=== PATIENT | female | born 1965 | race Two or more races ===

== ENCOUNTER 2020-01-13 10:54 | Outpatient (REF) | payer OTHER, SELFPAY ==
[2020-01-13 13:31] LABS: MANUAL DIFF FLAG NO
[2020-01-13 13:35] LABS: Basophils Percent Auto 0.2 % (0-2); Eosinophils Absolute Auto 0.1 X10*3/uL (0.0-0.4); Eosinophils Percent Auto 1.4 % (0-4); Hemoglobin 13.3 g/dl (12.0-16.0); Imm Gran Abs Auto 0.01 X10*3/uL (0.00-0.03); Imm Gran Pct Auto 0.2 % (0.0-0.4); Lymphocytes Absolute Auto 1.4 X10*3/uL (1.2-4.9); Lymphocytes Percent Auto 32.6 % (20-40); Mean Corpuscular HGB Conc 31.7 g/dl (31.0-35.0); Mean Corpuscular Hemoglobin 29.5 pg (27.0-33.0); Mean Corpuscular Volume 93.1 fL (80-98); Mean Platelet Volume 10.4 fL (9.4-12.3); Monocytes Absolute Auto 0.3 X10*3/uL (0.1-1.2); Monocytes Percent Auto 7.3 % (2-11); Neutrophils Absolute Auto 2.5 X10*3/uL (2.0-8.3); Neutrophils Percent Auto 58.3 % (45-73); Platelet Count 268 X10*3/uL (160-400); Red Blood Count 4.51 X10*6/uL (4.20-5.50); Red Cell Distribution Width 13.2 % (11.0-16.0); White Blood Count 4.3 X10*3/uL (4.8-10.8)
[2020-01-13 13:50] LABS: Alanine Aminotransferase 25 U/L (0-31); Alkaline Phosphatase 67 U/L (39-117); Anion Gap 12 (12-20); Aspartate Amino Transferase 20 U/L (5-31); Bilirubin Total 0.7 mg/dL (0.0-1.0); Blood Urea Nitrogen 16 mg/dL (9-16); C Reactive Protein 0.13 mg/dL (< or = 0.50); Calcium 9.8 mg/dL (8.4-10.2); Carbon Dioxide 29 mmol/L (22-29); Chloride 105 mmol/L (96-108); Cholesterol 169 mg/dL; Estimated Average Glucose 88 mg/dL; Estimated Glomerular Filt Rate > 60; Glucose Random 77 mg/dL (60-115); HDL Cholesterol 68 mg/dL; Hemoglobin A1c % 4.7 %; Iron 147 mcg/dL (30-160); LDL Cholesterol Calculated 89 mg/dl; Percent Iron Saturation 45 % (15-50); Potassium 4.3 mmol/l (3.3-5.1); Sodium 142 mmol/L (135-145); Total Iron Binding Capacity 327 mcg/dL (228-428); Total Protein 6.9 g/dL (6.5-8.0); Triglycerides 62 mg/dL; Unsaturated Iron Binding 180 ug/dL
[2020-01-13 14:20] LABS: TSH reflex Free T4 0.52 mIU/mL (0.32-4.0); Vitamin D 25-OH Total 49.6 ng/mL (>30)
[2020-01-13 17:30] LABS: Ferritin 125 ng/mL (10-250)
[2020-01-14 17:52] LABS: Insulin Level Total 2.9 uIU/mL
[2020-01-14 20:55] LABS: Folate 16.8 ng/mL (> or = 4.0); Vitamin B12 369 pg/mL (200-900)
[2020-01-17 16:57] LABS: Zinc 67 mcg/dL (60-130)
[2020-01-18 07:02] LABS: Calcium (PTHI) 10.3 mg/dL (8.6-10.4); PTHI 55 pg/mL (14-64)
[2020-01-19 17:11] LABS: Vitamin A 53 mcg/dL (38-98)
[2020-01-20 10:46] LABS: Vitamin B1 10 nmol/L (8-30)
== END 2020-01-13 10:55 | disposition home or self-care (01) ==
LOC: HO.LAB 10:54
PROVIDERS: PCP Internal Medicine; Visit Provider Dietitian, Registered
DX: Z98.84 Bariatric surgery status (principal)
CPT/HCPCS: 36415; 80053; 80061; 82306; 82607; 82728; 82746; 83036; 83525; 83540; 83970; 84425; 84443; 84590; 84630; 85025; 86140

== ENCOUNTER → 2020-03-13 13:52 | Outpatient (BNVA) | payer OTHER, SELFPAY | PROVIDERS: PCP Internal Medicine; Referring Provider Internal Medicine; Visit Provider Surgery | DX: E66.3 Overweight (principal); Z90.3 Acquired absence of stomach [part of]; Z68.26 Body mass index [BMI] 26.0-26.9, adult; K91.2 Postsurgical malabsorption, not elsewhere classified | CPT/HCPCS: 99212 ==

== ENCOUNTER → 2020-07-10 13:26 | Outpatient (BNVA) | payer OTHER, SELFPAY | PROVIDERS: PCP Internal Medicine; Visit Provider Physician Assistant | DX: E66.3 Overweight (principal); K91.2 Postsurgical malabsorption, not elsewhere classified; Z90.3 Acquired absence of stomach [part of]; Z68.36 Body mass index [BMI] 36.0-36.9, adult | CPT/HCPCS: 99212 ==

== ENCOUNTER → 2020-08-09 08:18 | Outpatient (BNVA) | payer OTHER, SELFPAY | PROVIDERS: PCP Internal Medicine; Visit Provider Dietitian, Registered | DX: E66.9 Obesity, unspecified (principal); Z68.26 Body mass index [BMI] 26.0-26.9, adult | CPT/HCPCS: 97803 ==

== ENCOUNTER → 2020-10-17 08:10 | Outpatient (BNVA) | payer OTHER, SELFPAY | PROVIDERS: PCP Internal Medicine; Visit Provider Physician Assistant ==

== ENCOUNTER → 2020-10-19 11:46 | Outpatient (BNVA) | payer OTHER, SELFPAY | PROVIDERS: PCP Internal Medicine; Visit Provider Physician Assistant ==

== ENCOUNTER → 2020-11-14 13:21 | Outpatient (BNVA) | payer OTHER, SELFPAY | PROVIDERS: PCP Internal Medicine; Visit Provider Physician Assistant | DX: M79.3 Panniculitis, unspecified (principal); Z90.3 Acquired absence of stomach [part of]; Z79.899 Other long term (current) drug therapy | CPT/HCPCS: 99212 ==

== ENCOUNTER → 2020-12-08 13:45 | Outpatient (BNVA) | payer OTHER, SELFPAY | PROVIDERS: PCP Internal Medicine; Visit Provider Physician Assistant | DX: L29.8 Other pruritus (principal); M79.3 Panniculitis, unspecified; E66.3 Overweight; Z68.27 Body mass index [BMI] 27.0-27.9, adult; Z90.3 Acquired absence of stomach [part of] | CPT/HCPCS: 99212 ==

== ENCOUNTER 2020-12-13 10:55 | Outpatient (REF) | payer OTHER, SELFPAY ==
[2020-12-13 11:51] LABS: MANUAL DIFF FLAG NO
[2020-12-13 11:53] LABS: Basophils Percent Auto 0.3 % (0-2); Eosinophils Percent Auto 1.1 % (0-4); Hematocrit 39.6 % (37-47); Imm Gran Abs Auto 0.01 X10*3/uL (0.00-0.03); Imm Gran Pct Auto 0.3 % (0.0-0.4); Mean Corpuscular HGB Conc 32.8 g/dl (31.0-35.0); Mean Corpuscular Hemoglobin 29.7 pg (27.0-33.0); Mean Corpuscular Volume 90.4 fL (80-98); Mean Platelet Volume 10.4 fL (9.4-12.3); Monocytes Absolute Auto 0.4 X10*3/uL (0.1-1.2); Monocytes Percent Auto 10.2 % (2-11); Neutrophils Absolute Auto 2.2 X10*3/uL (2.0-8.3); Neutrophils Percent Auto 60.1 % (45-73); Platelet Count 278 X10*3/uL (160-400); Red Blood Count 4.38 X10*6/uL (4.20-5.50); Red Cell Distribution Width 12.7 % (11.0-16.0); White Blood Count 3.7 X10*3/uL (4.8-10.8)
[2020-12-13 12:00] LABS: Estimated Average Glucose 88 mg/dL; Hemoglobin A1c % 4.7 %
[2020-12-13 12:23] LABS: Alanine Aminotransferase 238 U/L (0-31); Albumin Level 3.9 g/dL (3.5-5.0); Alkaline Phosphatase 90 U/L (39-117); Anion Gap 10 (12-20); Aspartate Amino Transferase 320 U/L (5-31); Bilirubin Total 0.8 mg/dL (0.0-1.0); Blood Urea Nitrogen 13 mg/dL (9-16); C Reactive Protein 0.11 mg/dL (< or = 0.50); Carbon Dioxide 30 mmol/L (22-29); Chloride 106 mmol/L (96-108); Cholesterol 180 mg/dL; Estimated Glomerular Filt Rate > 60; Glucose Random 83 mg/dL (60-115); HDL Cholesterol 69 mg/dL; Iron 134 mcg/dL (30-160); LDL Cholesterol Calculated 90 mg/dl; Percent Iron Saturation 44 % (15-50); Potassium 4.8 mmol/L (3.3-5.1); Sodium 141 mmol/L (135-145); Total Iron Binding Capacity 308 mcg/dL (228-428); Total Protein 6.7 g/dL (6.5-8.0); Triglycerides 107 mg/dL; Unsaturated Iron Binding 174 ug/dL
[2020-12-13 12:33] LABS: Ferritin 124 ng/mL (10-250); TSH reflex Free T4 1.76 uIU/mL (0.32-4.0); Vitamin D 25-OH Total 36.8 ng/mL (>30)
[2020-12-13 12:51] LABS: Folate 17.1 ng/mL (> or = 4.0); Vitamin B12 1049 pg/mL (200-900)
[2020-12-15 02:52] LABS: Insulin Level Total 5.6 uIU/mL
[2020-12-17 00:51] LABS: Zinc 53 mcg/dL (60-130)
[2020-12-17 06:31] LABS: Calcium (PTHI) 9.8 mg/dL (8.6-10.4); PTHI 59 pg/mL (14-64)
[2020-12-17 11:22] LABS: Vitamin B1 17 nmol/L (8-30)
[2020-12-19 20:22] LABS: Vitamin A 45 mcg/dL (38-98)
== END 2020-12-13 10:56 | disposition home or self-care (01) ==
LOC: HO.LAB 10:55
PROVIDERS: Physician Assistant; Visit Provider Physical Medicine & Rehabilitation
DX: E66.3 Overweight (principal); Z90.3 Acquired absence of stomach [part of]
CPT/HCPCS: 36415; 80053; 80061; 82306; 82607; 82728; 82746; 83036; 83525; 83540; 83970; 84425; 84443; 84590; 84630; 85025; 86140

== ENCOUNTER → 2021-02-02 14:05 | Outpatient (BNVA) | payer OTHER, SELFPAY | PROVIDERS: PCP Internal Medicine; Visit Provider Physician Assistant Surgical | DX: E66.3 Overweight (principal); L98.7 Excessive and redundant skin and subcutaneous tissue; R74.8 Abnormal levels of other serum enzymes; Z68.27 Body mass index [BMI] 27.0-27.9, adult | CPT/HCPCS: 99212 ==

== ENCOUNTER 2021-02-03 09:15 | Outpatient (REF) | payer OTHER, SELFPAY ==
[2021-02-03 10:03] LABS: Hematocrit 39.9 % (37.0-47.0); Hemoglobin 12.6 g/dl (12.0-16.0); Mean Corpuscular HGB Conc 31.6 g/dl (31.0-35.0); Mean Corpuscular Hemoglobin 28.8 pg (27.0-33.0); Mean Corpuscular Volume 91.3 fL (80.0-98.0); Mean Platelet Volume 9.8 fL (9.4-12.3); Platelet Count 280 X10*3/uL (160-400); Red Blood Count 4.37 X10*6/uL (4.20-5.50); White Blood Count 3.2 X10*3/uL (4.8-10.8)
[2021-02-03 10:18] LABS: Alanine Aminotransferase 14 U/L (0-31); Albumin Level 3.9 g/dL (3.5-5.0); Alkaline Phosphatase 77 U/L (39-117); Anion Gap 11 (12-20); Aspartate Amino Transferase 18 U/L (5-31); Bilirubin Direct 0.2 mg/dL (0.0-0.5); Bilirubin Total 0.6 mg/dL (0.0-1.0); Blood Urea Nitrogen 9 mg/dL (9-16); Calcium 9.7 mg/dL (8.4-10.2); Carbon Dioxide 30 mmol/L (22-29); Chloride 107 mmol/L (96-108); Estimated Glomerular Filt Rate > 60; Glucose Random 68 mg/dL (60-115); Potassium 4.9 mmol/L (3.3-5.1); Sodium 143 mmol/L (135-145); Total Protein 6.7 g/dL (6.5-8.0)
[2021-02-03 10:40] LABS: Vitamin D 25-OH Total 39.8 ng/mL (>30)
[2021-02-03 11:16] LABS: Atypical Lymph Absolute Manual 0.1 x10*3/uL; Atypical Lymphs Percent Manual 3 % (0-6); Band Neutrophils Percent 1 % (3-5); Eosinophils Absolute Manual 0.1 X10*3/uL (0.0-0.4); Eosinophils Percent Manual 2 % (0-4); Lymphocytes Absolute Manual 1.4 X10*3/uL (1.2-4.9); Lymphocytes Percent Manual 43 % (20-40); Monocytes Absolute Manual 0.4 X10*3/uL (0.1-1.2); Monocytes Percent Manual 11 % (2-11); Neutrophils Absolute Manual 1.3 X10*3/uL (2.0-8.3); Neutrophils Percent Manual 40 % (45-73)
[2021-02-03 11:18] LABS: Platelet Estimate NORMAL (NORMAL); Platelet Morphology Comment NORMAL; RBC Morphology NORMAL
[2021-02-07 04:36] LABS: Zinc 66 mcg/dL (60-130)
[2021-02-07 18:42] LABS: Vitamin A 35 mcg/dL (38-98)
== END 2021-02-03 09:16 | disposition home or self-care (01) ==
LOC: HO.LAB 09:15
PROVIDERS: Visit Provider Physician Assistant Surgical
DX: E66.3 Overweight (principal)
CPT/HCPCS: 36415; 80053; 82248; 82306; 84590; 84630; 85007; 85025; 85027

== ENCOUNTER → 2021-02-22 11:21 | Outpatient (BNVA) | payer OTHER, SELFPAY | PROVIDERS: PCP Internal Medicine; Visit Provider Physician Assistant Surgical | DX: E66.3 Overweight (principal); M79.3 Panniculitis, unspecified; E03.9 Hypothyroidism, unspecified; F41.8 Other specified anxiety disorders; Z68.27 Body mass index [BMI] 27.0-27.9, adult; Z87.891 Personal history of nicotine dependence; Z90.3 Acquired absence of stomach [part of]; Z79.899 Other long term (current) drug therapy | CPT/HCPCS: 99212 ==

== ENCOUNTER → 2021-03-23 08:07 | Outpatient (BNVA) | payer OTHER, SELFPAY | PROVIDERS: PCP Internal Medicine; Visit Provider Physician Assistant Surgical ==

== ENCOUNTER → 2021-09-12 14:16 | Outpatient (BNVA) | payer OTHER, SELFPAY | PROVIDERS: PCP Internal Medicine; Visit Provider Physician Assistant Surgical | DX: E66.3 Overweight (principal); Z68.28 Body mass index [BMI] 28.0-28.9, adult; Z98.84 Bariatric surgery status | CPT/HCPCS: 99212 ==

== ENCOUNTER → 2022-06-11 09:18 | Outpatient (BNVA) | payer OTHER, SELFPAY | PROVIDERS: PCP Internal Medicine; Visit Provider Physician Assistant | DX: Z13.89 Encounter for screening for other disorder (principal) ==

== ENCOUNTER → 2022-06-27 14:00 | Outpatient (BNVA) | payer OTHER, SELFPAY | PROVIDERS: PCP Internal Medicine; Visit Provider Physician Assistant Surgical | DX: E66.3 Overweight (principal); L98.7 Excessive and redundant skin and subcutaneous tissue; Z68.27 Body mass index [BMI] 27.0-27.9, adult; Z90.49 Acquired absence of other specified parts of digestive tract; Z90.3 Acquired absence of stomach [part of] | CPT/HCPCS: 99212 ==

== ENCOUNTER 2022-07-22 08:14 | Outpatient (REF) | payer OTHER, SELFPAY ==
[2022-07-22 08:26] LABS: MANUAL DIFF FLAG NO
[2022-07-22 08:51] LABS: Basophils Percent Auto 0.3 % (0-2); Eosinophils Absolute Auto 0.1 X10*3/uL (0.0-0.4); Eosinophils Percent Auto 2.4 % (0-4); Hemoglobin 11.5 g/dl (12.0-16.0); Imm Gran Abs Auto 0.01 X10*3/uL (0.00-0.03); Imm Gran Pct Auto 0.3 % (0.0-0.4); Lymphocytes Absolute Auto 1.2 X10*3/uL (1.2-4.9); Lymphocytes Percent Auto 35.6 % (20-40); Mean Corpuscular HGB Conc 31.9 g/dl (31.0-35.0); Mean Corpuscular Hemoglobin 28.5 pg (27.0-33.0); Mean Corpuscular Volume 89.1 fL (80.0-98.0); Mean Platelet Volume 9.8 fL (9.4-12.3); Monocytes Absolute Auto 0.4 X10*3/uL (0.1-1.2); Monocytes Percent Auto 12.2 % (2-11); Neutrophils Absolute Auto 1.7 x10*3/uL (2.0-8.3); Neutrophils Percent Auto 49.2 % (45-73); Platelet Count 263 X10*3/uL (160-400); Red Blood Count 4.04 X10*6/uL (4.20-5.50); Red Cell Distribution Width 12.7 % (11.0-16.0); White Blood Count 3.4 X10*3/uL (4.8-10.8)
[2022-07-22 09:23] LABS: Estimated Average Glucose 97 mg/dL
[2022-07-22 09:35] LABS: Alanine Aminotransferase 12 U/L (0-31); Albumin Level 3.6 g/dL (3.5-5.0); Alkaline Phosphatase 70 U/L (39-117); Anion Gap 10 (12-20); Aspartate Amino Transferase 15 U/L (5-31); Bilirubin Total 0.6 mg/dL (0.0-1.0); Blood Urea Nitrogen 11 mg/dL (9-16); C Reactive Protein < 0.10 mg/dL (< or = 0.50); Calcium 9.3 mg/dL (8.4-10.2); Carbon Dioxide 28 mmol/L (22-29); Chloride 108 mmol/L (96-108); Cholesterol 152 mg/dL; Estimated Glomerular Filt Rate > 60; Glucose Random 88 mg/dL (60-115); HDL Cholesterol 54 mg/dL; Iron 104 mcg/dL (30-160); LDL Cholesterol Calculated 86 mg/dl; Percent Iron Saturation 39 % (15-50); Sodium 141 mmol/L (135-145); Total Iron Binding Capacity 266 mcg/dL (228-428); Total Protein 6.2 g/dL (6.5-8.0); Triglycerides 61 mg/dL; Unsaturated Iron Binding 162 ug/dL
[2022-07-22 10:13] LABS: Ferritin 91 ng/mL (10-250); Folate 10.5 ng/mL (> or = 4.0); TSH reflex Free T4 0.15 uIU/mL (0.32-4.0); Vitamin B12 454 pg/mL (200-900); Vitamin D 25-OH Total 35.7 ng/mL (>30)
[2022-07-22 10:33] LABS: Insulin 5 uU/mL (2-29)
[2022-07-22 10:53] LABS: Free T4 (Free Thyroxine) 1.28 ng/dL (0.71-1.85)
[2022-07-23 15:48] LABS: Calcium (PTHI) 9.7 mg/dL (8.6-10.4); PTHI 59 pg/mL (16-77)
[2022-07-26 22:54] LABS: Zinc 63 mcg/dL (60-130)
[2022-07-27 10:33] LABS: Vitamin B1 11 nmol/L (8-30)
[2022-07-27 22:39] LABS: Vitamin A 36 mcg/dL (38-98)
== END 2022-07-22 08:15 | disposition home or self-care (01) ==
LOC: HO.LAB 08:14
PROVIDERS: Visit Provider Physician Assistant Surgical
DX: E66.3 Overweight (principal); L98.7 Excessive and redundant skin and subcutaneous tissue; Z90.3 Acquired absence of stomach [part of]
CPT/HCPCS: 36415; 80053; 80061; 82306; 82607; 82728; 82746; 83036; 83525; 83540; 83970; 84425; 84439; 84443; 84590; 84630; 85025; 86140

== ENCOUNTER 2023-11-19 10:58 | Outpatient (AMB) | payer OTHER, SELFPAY ==
--- NOTE | 2023-11-19 11:27 | MHC.OFFVISWM ---
VS Expanded 11/19/23 11:40 BP 114/72 Blood Pressure Location Rt brachial Blood Pressure Position Sitting Pulse 57 Pulse Source Pulse Oximeter Temp 96.9 F Temperature Source Temporal Artery Scan Pulse Oximetry 100 Oxygen Delivery Method Room Air Height 5 ft 4 in Weight 169 lb BMI 29.0 Body Fat % 41.4 Body Fat Mass 69.8 Fat Free Mass 99.0 Visceral Fat Rating 10.0 Body Water % 41.5 Body Water Mass 70.2 Muscle Mass/Score 94.0 Basal Metabolic Rate/Score 1,374 Intake Visit Reasons: (OV) PO LSG 02/24/19 Allergies No Known Allergies [No Known Allergies*] Allergy (Verified 11/19/23 11:35) Medication List - Last Reconciled 11/19/23 by GANGA Lopez fluticasone propionate 50 mcg/actuation (Allergy Relief (fluticasone)) 1 spray intranasal DAILY levothyroxine 125 mcg PO DAILY omeprazole 40 mg PO DAILY vitamin A palmitate 10,000 units PO DAILY HPI Comments Details: This?is a?58?yo female who is s/p LSG 02/24/2019. Weight at last visit on 06/27/2022 was 161.2 pounds with a BMI of 27.6, weight today is 169 pounds, representing a 7.8 pound weight gain with a BMI today of 29.? No complaints of emesis, abdominal pain or reflux, or constipation. Occasional nausea with certain foods- meats. Was prescribed Wegovy but has not started taking it. Present meal plan includes: pt thinks she is low is protein coffee in AM, 2 eggs with veg lunch- sandwich dinner- veg, small portion of rice, beans, small portion of meat sometimes Exercise routine includes: 30-40min elliptical- has arthritis in knees I was lacking in that - had a procedure for varicose veins PFSH Medical History Anemia Anxiety Asthma Depression Hypothyroidism Overweight (BMI 25.0-29.9) Panniculitis Plantar fasciitis Surgical History Hx of cholecystectomy S/P rotator cuff surgery History of repair of hiatal hernia Hx of hernia repair History of sleeve gastrectomy Hx of colonoscopy History of esophagogastroduodenoscopy (EGD) Hx of total knee replacement Hx of tubal ligation Hx of tonsillectomy Family History Father No problems noted. Mother Hypertension Blood clot in vein Family history of thyroid problem Diabetes mellitus Sleep apnea Son No problems noted. Son No problems noted. Son No problems noted. Daughter No problems noted. Daughter No problems noted. Daughter No problems noted. Brother No problems noted. Brother No problems noted. Sister No problems noted. Social History Alcohol intake: current Alcohol intake frequency: a few times a month Patient Tobacco Use Status: Former Tobacco user Assessment & Plan Assessment & Plan (1) Overweight (BMI 25.0-29.9): Code(s): E66.3 - Overweight Category: Medical (2) History of sleeve gastrectomy: Comment: 02/24/2019 Code(s): Z90.3 - Acquired absence of stomach [part of] Category: Medical Plan Adjust meal plan to ensure adequate protein, 2 eggs for breakfast, yogurt or bar for lunch, dinner meal with 4 forks protein, and Celebrate protein water each day. Pt will work on increasing exercise. Her nausea with certain meats (pork, beef) likely related to texture, not concerned for anatomical abnormality as she tolerates liquids, soft proteins without difficulty. Labs ordered. RTC 3-4 months. I spent a total of 30 minutes reviewing/updating records, examining the patient and counseling the patient on weight management as detailed above. Orders: Orders Insulin Today Z90.3 - Acquired absence of stomach [part of] Hemoglobin A1c Today Z90.3 - Acquired absence of stomach [part of] Lipid Panel Today Z90.3 - Acquired absence of stomach [part of] Comprehensive Met. Panel Today Z90.3 - Acquired absence of stomach [part of] Vitamin B1 Today Z90.3 - Acquired absence of stomach [part of] Vitamin A Today Z90.3 - Acquired absence of stomach [part of] TSH reflex Free T4 Today Z90.3 - Acquired absence of stomach [part of] Ferritin Today Z90.3 - Acquired absence of stomach [part of] Complete Blood Count Auto Diff Today Z90.3 - Acquired absence of stomach [part of] IRON PROFILE Today Z90.3 - Acquired absence of stomach [part of] Vitamin B12 and Folate Today . - Acquired absence of stomach [part of] Zinc Today . - Acquired absence of stomach [part of] C Reactive Protein Today . - Acquired absence of stomach [part of] Vitamin D 25-OH Total Today . - Acquired absence of stomach [part of]
[2023-11-19 11:40] VITALS: BP 114/72; PULSE 57; TEMP 36.1; O2SAT 100; BMI 29.0
== END 2023-11-19 12:03 | disposition home or self-care (01) ==
PROVIDERS: PCP Internal Medicine; Visit Provider Physician Assistant Surgical
DX: E66.3 Overweight (principal); Z68.29 Body mass index [BMI] 29.0-29.9, adult; Z90.3 Acquired absence of stomach [part of]; Z98.84 Bariatric surgery status
CPT/HCPCS: 99214

== ENCOUNTER → 2023-11-19 10:58 | Outpatient (BNVA) | payer OTHER, SELFPAY | PROVIDERS: PCP Internal Medicine; Visit Provider Physician Assistant Surgical | DX: E66.3 Overweight (principal); Z71.3 Dietary counseling and surveillance; Z90.3 Acquired absence of stomach [part of]; Z98.84 Bariatric surgery status; Z68.29 Body mass index [BMI] 29.0-29.9, adult | CPT/HCPCS: 99212 ==

== ENCOUNTER 2023-12-25 08:43 | Outpatient (REF) | payer OTHER, SELFPAY ==
[2023-12-25 09:00] LABS: MANUAL DIFF FLAG NO
[2023-12-25 09:22] LABS: Basophils Percent Auto 0.3 % (0-2); Eosinophils Absolute Auto 0.1 X10*3/uL (0.0-0.4); Eosinophils Percent Auto 1.7 % (0-4); Hemoglobin 14.1 g/dl (12.0-16.0); Imm Gran Abs Auto 0.01 X10*3/uL (0.00-0.03); Imm Gran Pct Auto 0.3 % (0.0-0.4); Lymphocytes Absolute Auto 1.2 X10*3/uL (1.2-4.9); Lymphocytes Percent Auto 35.6 % (20-40); Mean Corpuscular HGB Conc 32.8 g/dl (31.0-35.0); Mean Corpuscular Hemoglobin 29.1 pg (27.0-33.0); Mean Corpuscular Volume 88.7 fL (80.0-98.0); Mean Platelet Volume 9.6 fL (9.4-12.3); Monocytes Absolute Auto 0.4 X10*3/uL (0.1-1.2); Monocytes Percent Auto 10.2 % (2-11); Neutrophils Absolute Auto 1.8 x10*3/uL (2.0-8.3); Neutrophils Percent Auto 51.9 % (45-73); Platelet Count 279 X10*3/uL (160-400); Red Blood Count 4.85 X10*6/uL (4.20-5.50); Red Cell Distribution Width 12.6 % (11.0-16.0); White Blood Count 3.4 X10*3/uL (4.8-10.8)
[2023-12-25 10:11] LABS: Estimated Average Glucose 91 mg/dL; Hemoglobin A1c % 4.8 % (<6.0)
[2023-12-25 10:23] LABS: Alanine Aminotransferase 13 U/L (0-31); Albumin Level 4.1 g/dL (3.5-5.0); Alkaline Phosphatase 93 U/L (39-117); Anion Gap 9 (12-20); Aspartate Amino Transferase 19 U/L (5-31); Bilirubin Total 0.6 mg/dL (0.0-1.0); Blood Urea Nitrogen 12 mg/dL (9-16); C Reactive Protein 0.21 mg/dL (< or = 0.50); Calcium 9.7 mg/dL (8.4-10.2); Carbon Dioxide 31 mmol/L (22-29); Chloride 106 mmol/L (96-108); Cholesterol 168 mg/dL (<200); Estimated Glomerular Filt Rate > 60; Glucose Random 76 mg/dL (60-115); HDL Cholesterol 62 mg/dL (>40); Iron 87 mcg/dL (30-160); LDL Cholesterol Calculated 95 mg/dL (<100); Percent Iron Saturation 31 % (15-50); Potassium 4.9 mmol/L (3.3-5.1); Sodium 141 mmol/L (135-145); Total Iron Binding Capacity 278 mcg/dL (228-428); Total Protein 7.8 g/dL (6.5-8.0); Triglycerides 57 mg/dL (<150); Unsaturated Iron Binding 191 ug/dL
[2023-12-25 10:43] LABS: Folate 11.6 ng/mL (> or = 4.0); Vitamin B12 611 pg/mL (200-900)
[2023-12-25 10:44] LABS: Ferritin 125 ng/mL (10-250); Insulin 5 uU/mL (2-29); TSH reflex Free T4 1.11 uIU/mL (0.32-4.0); Vitamin D 25-OH Total 34.6 ng/mL (>30)
[2023-12-30 00:28] LABS: Zinc 68 mcg/dL (60-130)
[2023-12-30 18:18] LABS: Vitamin A 35 mcg/dL (38-98)
[2024-01-02 06:18] LABS: Vitamin B1 13 nmol/L (8-30)
== END 2023-12-25 08:44 | disposition home or self-care (01) ==
LOC: HO.LAB 08:43
PROVIDERS: PCP Internal Medicine; Visit Provider Physician Assistant Surgical
DX: Z90.3 Acquired absence of stomach [part of] (principal)
CPT/HCPCS: 36415; 80053; 80061; 82306; 82607; 82728; 82746; 83036; 83525; 83540; 84425; 84443; 84590; 84630; 85025; 86140

== ENCOUNTER 2024-02-16 11:05 | Outpatient (AMB) | payer OTHER, SELFPAY ==
--- NOTE | 2024-02-16 11:18 | A.OFFVIS_ITS ---
VS Expanded 02/16/24 11:41 BP 103/55 L Blood Pressure Location Rt brachial Blood Pressure Position Sitting Pulse 58 Pulse Source Pulse Oximeter Temp 96.5 F L Temperature Source Temporal Artery Scan Pulse Oximetry 100 Oxygen Delivery Method Room Air Height 5 ft 4 in Weight 154 lb BMI 26.4 Body Fat % 38.1 Body Fat Mass 58.6 Fat Free Mass 95.2 Visceral Fat Rating 8.0 Body Water % 43.8 Body Water Mass 67.4 Muscle Mass/Score 90.4 Basal Metabolic Rate/Score 1,311 Intake Visit Reasons: (OV) PO LSG 02/24/19 Allergies No Known Allergies [No Known Allergies*] Allergy (Verified 02/16/24 11:21) Medication List - Last Reconciled 02/16/24 by GANGA Lopez fluticasone propionate 50 mcg/actuation (Allergy Relief (fluticasone)) 1 spray intranasal DAILY levothyroxine 125 mcg PO DAILY omeprazole 40 mg PO DAILY semaglutide (weight loss) (Wegovy) mg subcut vitamin A palmitate 10,000 units PO DAILY HPI Comments Details: This?is a?58?yo female who is s/p LSG 02/24/2019. Presents for 5 year post op visit. Weight at last visit on 11/19/2023 was 169 pounds with a BMI of 29, weight today is 154 pounds, representing a 15 pound weight loss with a BMI today of 26.4.? No complaints of nausea, emesis, abdominal pain or reflux, or constipation. Pt has started Wegovy. Had some nausea initially when starting, better now. Still having some trouble getting enough protein in due to lack of hunger. However, has tried to at least one protein shake per day with 30g. Takes omeprazole PRN when triggered. Present meal plan includes: 2 eggs for breakfast, yogurt or bar for lunch, dinner meal with 4 forks protein, and Celebrate protein water taking MVI, ran out of vitamin A Exercise routine includes: active around house, with grandkids/cleaning Pt reports issues of excess skin of the abdomen. Reports frequent painful itchy rashes, particularly within the belly button. Difficult to keep this area clean, has to clean frequently. Notices an unpleasant odor due to moisture collecting in the skin folds. Has tried topical powders/creams which have not helped. Pt has difficulty finding clothing that fits well and is comfortable due to the excess skin. Excess skin interferes with activites of daily living, such as walking/bending/squatting which are made more difficult by the weight of the excess skin. The excess skin also causes back/flank pain due to the heaviness of the excess skin pulling downwards. [facility] Medical History Anemia Anxiety Asthma Depression Hypothyroidism Overweight (BMI 25.0-29.9) Panniculitis Plantar fasciitis Surgical History Hx of cholecystectomy S/P rotator cuff surgery History of repair of hiatal hernia Hx of hernia repair History of sleeve gastrectomy Hx of colonoscopy History of esophagogastroduodenoscopy (EGD) Hx of total knee replacement Hx of tubal ligation Hx of tonsillectomy Family History Father No problems noted. Mother Hypertension Blood clot in vein Family history of thyroid problem Diabetes mellitus Sleep apnea Son No problems noted. Son No problems noted. Son No problems noted. Daughter No problems noted. Daughter No problems noted. Daughter No problems noted. Brother No problems noted. Brother No problems noted. Sister No problems noted. Social History (Updated 02/16/24 @ 11:22 by Bella German CMA) Alcohol intake: current Alcohol intake frequency: holidays/special occasions only Patient Tobacco Use Status: Former Tobacco user Physical Exam Const General: cooperative, comfortable and no acute distress Orientation/consciousness: patient oriented x3 GI Other: soft, nontender, nondistended, incisions well healed, no hernia, no masses Grade III pannus Neuro General: patient oriented x3 Assessment & Plan Assessment & Plan (1) Excess skin: Code(s): L98.7 - Excessive and redundant skin and subcutaneous tissue Category: Medical (2) Overweight (BMI 25.0-29.9): Code(s): E66.3 - Overweight Category: Medical (3) History of sleeve gastrectomy: Comment: 02/24/2019 Code(s): Z90.3 - Acquired absence of stomach [part of] Category: Surgical Plan Goal of 60g protein per day, encouraged pt to have 2 small meals in addition to 30g shake, such as yogurt, bar, or meat. Vit A refilled. Pt is experiencing problems of excess skin of abdomen, resulting in frequent painful rashes. In addition, she is experiencing limitation of physical function including pain/discomfort when performing activities of daily living, requiring the use of special clothing, and resulting in back pain due to weight of excess skin. Clotrimazole ointment ordered for rashes of excess skin. RTC 6 weeks to monitor response to topical rx treatment. I took photos of her pannus today as she is interested in skin removal surgery. She is hopeful to time it for May if approved. I spent a total of 30 minutes reviewing/updating records, examining the patient and counseling the patient on weight management as detailed above. Medications: New clotrimazole 1% 1 appl topical BID 45 grams 3RF Refilled vitamin A palmitate 10,000 units PO DAILY 90 caps 3RF
[2024-02-16 11:41] VITALS: BP 103/55; PULSE 58; TEMP 35.8; O2SAT 100; BMI 26.4
== END 2024-02-16 12:01 | disposition home or self-care (01) ==
PROVIDERS: PCP Internal Medicine; Visit Provider Physician Assistant Surgical
DX: L98.7 Excessive and redundant skin and subcutaneous tissue (principal); E66.3 Overweight; Z68.26 Body mass index [BMI] 26.0-26.9, adult; Z98.84 Bariatric surgery status
CPT/HCPCS: 99214

== ENCOUNTER → 2024-02-16 11:05 | Outpatient (BNVA) | payer OTHER, SELFPAY | PROVIDERS: PCP Internal Medicine; Visit Provider Physician Assistant Surgical | DX: L98.7 Excessive and redundant skin and subcutaneous tissue (principal); E66.3 Overweight; Z68.26 Body mass index [BMI] 26.0-26.9, adult; Z90.3 Acquired absence of stomach [part of] | CPT/HCPCS: 99212 ==

== ENCOUNTER 2024-04-01 12:13 | Outpatient (AMB) | payer OTHER, SELFPAY ==
--- NOTE | 2024-04-01 12:07 | MHC.OFFVISWM ---
Intake Visit Reasons: (TV) PO LSG 02/24/19 Allergies No Known Allergies [No Known Allergies*] Allergy (Verified 02/16/24 11:21) Medication List - Last Reconciled 04/01/24 by GANGA Lopez clotrimazole 1% 1 appl topical BID fluticasone propionate 50 mcg/actuation (Allergy Relief (fluticasone)) 1 spray intranasal DAILY levothyroxine 125 mcg PO DAILY omeprazole 40 mg PO DAILY tirzepatide (weight loss) (Zepbound) 2.5 mg subcut QWEEK vitamin A palmitate 10,000 units PO DAILY HPI Comments Details: This?is a?58?yo female who is s/p LSG 02/24/2019. Presents for 5 year 1 month post op visit. Weight at last visit on 02/16/2024 was 154 pounds with a BMI of 29, weight today is 149 pounds, representing a 5 pound weight loss with a BMI today of 26.4.? No complaints of nausea, emesis, abdominal pain or reflux, or constipation. Pt has transitioned from Wegovy to Zepbound. Has tried to at least one protein shake per day with 30g. Takes omeprazole PRN when triggered. Present meal plan includes: 2 eggs for breakfast, yogurt or bar for lunch, dinner meal with 4 forks protein, and Celebrate protein water taking MVI, ran out of vitamin A at last visit encouraged pt to have 2 small meals in addition to 30g shake, such as yogurt, bar, or meat Exercise routine includes: active around house, with grandkids/cleaning Pt reports issues of excess skin of the abdomen. Reports frequent painful itchy rashes, particularly within the belly button. Difficult to keep this area clean, has to clean frequently. Notices an unpleasant odor due to moisture collecting in the skin folds. Has tried topical powders/creams which have not helped. Pt has difficulty finding clothing that fits well and is comfortable due to the excess skin. Excess skin interferes with activites of daily living, such as walking/bending/squatting which are made more difficult by the weight of the excess skin. The excess skin also causes back/flank pain due to the heaviness of the excess skin pulling downwards. [facility] Medical History Anemia Anxiety Asthma Depression Hypothyroidism Overweight (BMI 25.0-29.9) Panniculitis Plantar fasciitis Surgical History Hx of cholecystectomy S/P rotator cuff surgery History of repair of hiatal hernia Hx of hernia repair History of sleeve gastrectomy Hx of colonoscopy History of esophagogastroduodenoscopy (EGD) Hx of total knee replacement Hx of tubal ligation Hx of tonsillectomy Family History Father No problems noted. Mother Hypertension Blood clot in vein Family history of thyroid problem Diabetes mellitus Sleep apnea Son No problems noted. Son No problems noted. Son No problems noted. Daughter No problems noted. Daughter No problems noted. Daughter No problems noted. Brother No problems noted. Brother No problems noted. Sister No problems noted. Social History (Updated 02/16/24 @ 11:22 by Bella German CMA) Alcohol intake: current Alcohol intake frequency: holidays/special occasions only Patient Tobacco Use Status: Former Tobacco user Telehealth Telehealth Telehealth Platform: Telephone Location of provider rendering services: other Location of patient: other Patient Identification confirmed using: Name, : Yes Telehealth method: voice only Patient verbally consented to treatment: Yes Patient verbally consented to billing insurance company: Yes Patient informed of any privacy concerns related to visit: Yes Minutes spent on Phone/Video with Pt.: 14 Assessment & Plan Assessment & Plan (1) Excess skin: Code(s): L98.7 - Excessive and redundant skin and subcutaneous tissue Category: Medical (2) Overweight (BMI 25.0-29.9): Code(s): E66.3 - Overweight Category: Medical (3) History of sleeve gastrectomy: Comment: 02/24/2019 Code(s): Z90.3 - Acquired absence of stomach [part of] Category: Surgical Plan Pt continues to have issues with excess skin of abdomen, resulting in frequent painful malodorous rashes refractory to topical rx treatment as well as limitation and discomfort while performing activities of daily living, including ambulation. She would benefit from definitive treatment of panniculectomy. Photos taken at previous visit. Will submit to insurance. I spent a total of 30 minutes reviewing/updating records, examining the patient and counseling the patient on weight management as detailed above.
== END 2024-04-01 12:24 | disposition home or self-care (01) ==
LOC: HO.HBS 12:13
PROVIDERS: PCP Internal Medicine; Visit Provider Physician Assistant Surgical
DX: L98.7 Excessive and redundant skin and subcutaneous tissue (principal); E66.3 Overweight; Z68.26 Body mass index [BMI] 26.0-26.9, adult; Z98.84 Bariatric surgery status
CPT/HCPCS: 99214; G2211

== ENCOUNTER → 2024-04-01 12:13 | Outpatient (BNVA) | payer OTHER, SELFPAY | PROVIDERS: PCP Internal Medicine; Visit Provider Physician Assistant Surgical ==

== ENCOUNTER → 2024-05-13 08:03 | Outpatient (BNVA) | payer OTHER, SELFPAY | PROVIDERS: PCP Internal Medicine; Visit Provider Surgery ==

== ENCOUNTER 2024-05-13 09:06 | Outpatient (AMB) | payer OTHER, SELFPAY ==
--- OUTSIDE RECORDS SUMMARY | 2024-05-13 08:04 | XMS_ITS | Continuity of Care Document ---
Author Organization [facility] Address [address] [place] [address] Phone Care Team Providers Care Plastic Surgery Manager Name Role Phone Nahun CONNELLY Adal Unavailable [...] Providers Copied on Encounter [facility] MD [facility], [address] [place] [address] Dr Sheets 1000SuSilvano reeves MD, [id number], tel:[phone] [facility]en Pat[facility] No Information 5 [facility]. [address] [place] [address], [address], [place], [place], [id number], . tel:[phone] Office/Outpt E&M Established 25 Mins- CT & [place] [facility] MD R[facility], [address] [place] [address] Dr Sheets 1000SuSilvano reeves MD, [id number], [place] tel:[phone] CVR - [facility] Disorder of pigmentation , unspecifiedV aricose veins of bilateral lower extremities with painCramp and spasmRestles s legs syndromeLoca lized edema 4 Rolf JUAN RVT, RAYO Broussard. [address] [place] [address], [place], [place], [id number], [place]. tel:[phone] Referring Provider: Odalis Arreola ra, [address] [place] [address], [address]. tel:[phone] [facility] MD R[facility], [address] [place] [address] Dr Sheets 1000SuSilvano reeves MD, [id number], [place] tel:[phone] [facility] Encounter for follow-up examination after completed treatment for conditions other than malignant neVaricose veins of bilateral lower extremities with pain 4 Rolf JUAN RVT, RPVI Robert. [address] [place] [address], [facility] [place], [id number], [place]. tel:[phone] Referring Provider: Odalis Arreola ra, [address] [place] [address], [address]. tel:[phone] [facility] MD R[facility]TER, [address] [place] [address] Dr Sheets 1000SuSilvano reeves MD, [id number], [place] tel:[phone] CVR - [facility] Encounter for follow-up examination after completed treatment for conditions other than malignant ne 4 Rolf JUAN RVT, RAYO Broussard. [address] [place] [address], [facility] [place], [id number], [place]. tel:[phone] Referring Provider: Odalis Arreola ra, [address] [place] [address], [address]. tel:[phone] [facility], [address] [place] [address] Dr Sheets 1000Suite 1000Sil[place]ano MD, [id number], [place] tel:[phone] [facility] [place] Encounter for follow-up examination after completed treatment for conditions other than malignant nePain in right leg 4 Rolf JUAN RVT, RAYO Broussard. [address] [place] [address], [facility] [place], [id number], [place]. tel:[phone] Referring Provider: Odalis Arreola ra, [address] [place] [address], [address]. tel:[phone] [place] [facility], [address] [place] [address] Dr Sheets 1000Suite Silvano Machado [place], [id number], [place] tel:[phone] CVR - [facility] Varicose veins of right lower extremity with other complication s 4 Rolf JUAN RVT, RAYO Broussard. [address] [place] [address], [facility] [place], [id number], [place]. tel:[phone] Referring Provider: Odalis Arreola ra, [address] [place] [address], [address]. tel:[phone] [facility], [address] [place] [address] Dr Sheets 1000Suite 1000Silvano MD, [id number], [place] tel:[phone] CVR [facility] Chronic venous hypertension (idiopathic) with inflammation of right lower extremity 4 Rolf JUAN RVT, RAYO Broussard. [address] [place] [address], [facility], [place], [id number], [place]. tel:[phone] Referring Provider: Odalis Arreola ra, [address] [place] [address], [address]. tel:[phone] [facility] MD R[facility], [address] [place] [address] Suite [address]Suite 1000Silvano [place], [id number], [place] tel:[phone] CVR [facility] Encounter for follow-up examination after completed treatment for conditions other than malignant neoplasm 4 Melissa Brush. [address] [facility], [address], [place], [place], [id number], [place]. tel:[phone] Referring Provider: Odalis Arreola ra, [address] [place] [address], [address]. tel:[phone] [facility] MD R[facility]TER, [address] [place] [address] [facility] 1000Suite 1000Silvano [place], [id number], [place] tel:[phone] [facility] Varicose veins of left lower extremity with other complication s 4 Rolf JUAN, BRIDGETTE, RAYO Broussard. [address] [place] [address], [facility] [place], [id number], [place]. tel:[phone] Referring Provider: Odalis Arreola ra, [address] [place] [address], [address]. tel:[phone] [facility] MD [facility], [address] [place] [address] [facility] 1000Suite 1000Silvano [place], [id number], [place] tel:[phone] CVR [facility] Encounter for follow-up examination after completed treatment for conditions other than malignant nePain in left leg 4 Rolf JUAN RVT, RAYO Broussard. [address] [place] [address], [place], [id number], [place]. tel:[phone] Referring Provider: Odalis Arreola ra, [address] [place] [address], [address]. tel:[phone] [facility], [address] [place] [address] Dr Sheets 1000Suite 1000[place] MD, [id number], [place] tel:[phone] [facility] Varicose veins of left lower extremity with other complication s 4 Rolf JUAN RVT, RAYO Broussard. [address] [place] [address], [facility] [place], [id number], [place]. tel:[phone] Referring Provider: Odalis Arreola ra, [address] [place] [address], [address]. tel:[phone] [facility], [address] [place] [address] Dr Sheets 1000ite 1000Silvano MD, [id number], [place] tel:[phone] [facility] - [place] Varicose veins of left lower extremity with other complication s 4 Rolf JUAN RVT, RAYO Broussard. [address] [place] [address], [facility] [place], [id number], [place]. tel:[phone] Referring Provider: Odalis Arreola ra, [address] [place] [address], [address]. tel:[phone] [facility], [address] [place] [address] Dr Sheets 1000[facility] Silvano Machado [place], [id number], [place] tel:[phone] [facility] - [place] No Information 4 Rolf JUAN RVT, RAYO Broussard. [address] [place] [address], [facility] [place], [id number], [place]. tel:[phone] Offic/outpt E&m Estab 5 Min Trial- Telemedicine CT & [place] [facility], [address] [place] [address] Dr Sheets 1000Suite 1000Sil[place]ano MD, [id number], [place] tel:[phone] [facility] Varicose veins of right lower extremity with inflammation Varicose veins of left lower extremity with inflammation Localized edemaCramp and spasmRestles s legs syndromePrur itus, unspecifiedD isorder of pigmentation , unspecified 4 Lynette Almonte. [address] [place], [place] [address], [id number], . tel:[phone] Referring Provider: Odalis Arreola ra, [address] [place] [address], [address]. tel:[phone] Offic Cons New/estab Mod 40 Oh [facility], [address] [place] [address] Dr Sheets 1000[facility] 1000Silvano [place], [id number], tel:[phone] [facility] Varicose veins of bilateral lower extremities with other complication sVaricose veins of right lower extremity with inflammation Varicose veins of left lower extremity with inflammation Pain in right lower legRestless legs syndromePrur itus, unspecifiedD isorder of pigmentation , unspecifiedP ain in right legPain in left legPain in left lower legCramp and spasmLocaliz ed edema 4 Rolf JUAN, BRIDGETTE, RAYO Broussard. [address] [place] [address], [facility], [id number], . tel:[phone] Referring Provider: Odalis Arreola ra, [address] [place] [address], [address]. tel:[phone] [facility], [address] [place] [address] [facility] 1000[place] [address]Sil[place], [id number], tel:[phone] [facility] Varicose veins of bilateral lower extremities with pain 4 Rolf JUAN RVT, RAYO Broussard. [address] [place] [address], [facility] [place], [id number], . tel:[phone] Referring Provider: Odalis Arreola ra, [address] [place] [address], [address]. tel:[phone] Family History Family Member Type Diagnosis Age At Onset No Information Payers Payer name Insurance type Covered democrat ID Authoriza tikike(s) [employer] [facility] CI [id number] Social History Type Description Quantity Date Captured [...] Body mass index (BMI) 27.0-27.9, adult) ordered Appointment Norman, Kim BOOKED Appointment Norman, Kim BOOKED Appointment Norman, Kim BOOKED Appointment Norman, Kim BOOKED Appointment Norman, Kim BOOKED Appointment Norman, Kim BOOKED Appointment Norman, Kim BOOKED History Of Present Illness Encounter Date Complaint History Of Prese nt Illness No Information Functional Status Date Functional Assessmen t No Information Instructions Date Instruction Additional Infor mation Patient education booklet given Related to Varicose veins of bilateral lower extremities with pain Compression stocking usage as conservative measure Related [...] of bilateral lower extremities with other complications Feb-22-2024 Patient education booklet given Related to Varicose [...]
--- OUTSIDE RECORDS SUMMARY | 2024-05-13 09:14 | XMS_ITS | Continuity of Care Document ---
Author Organization [facility] Address [address] [place] [address] Phone Care Team Providers Care Mason Tender Name Role Phone Nahun CONNELLY Adal Unavailable [...] Providers Copied on Encounter Austen Patel Vein Zoroastrianism MD R[facility]TER, [address] [place] [address] Dr Sheets 1000SuSilvano reeves [place], [id number], tel:[phone] Austen Patel Vein Zoroastrianism [facility] No Information 5 [facility]. [address] [place] [address], [address], [place], [place], [id number], . tel:[phone] Office/Outpt E&M Established 25 Mins- [place] & [place] Austen Patel Vein Zoroastrianism MD R[facility]TER, [address] [place] [address] Dr Sheets 1000SuSilvano reeves [place], [id number], [place] tel:[phone] [facility] Disorder of pigmentation , unspecifiedV aricose veins of bilateral lower extremities with painCramp and spasmRestles s legs syndromeLoca lized edema 4 Rolf JUAN RVT, RAYO Broussard. [address] [place] [address], [place], [place], [id number], [place]. tel:[phone] Referring Provider: Odalis Arreola ra, [address] [place] [address], [address]. tel:[phone] Austen Patel Vein Zoroastrianism MD R[facility]TER, [address] [place] [address] Dr Sheets 1000SuSilvano reeves [place], [id number], [place] tel:[phone] [facility] Encounter for follow-up examination after completed treatment for conditions other than malignant neVaricose veins of bilateral lower extremities with pain 4 Rolf JUAN RVT, RPVI Robert. [address] [place] [address], [facility] [place] [id number], [place]. tel:[phone] Referring Provider: Odalis Arreola ra, [address] [place] [address], [address]. tel:[phone] Austen Patel Vein Zoroastrianism MD R[facility]TER, [address] [place] [address] Dr Sheets 1000SuSilvano reeves [place], [id number], [place] tel:[phone] [facility] Encounter for follow-up examination after completed treatment for conditions other than malignant ne 4 Rolf JUAN RVT, RAYO Broussard. [address] [place] [address], [facility] [place], [id number], [place]. tel:[phone] Referring Provider: Odalis Arreola ra, [address] [place] [address], [address]. tel:[phone] [facility] For [facility]in [facility]rian[facility], [address] [place] [address] Dr Sheets 1000Suite 1000[place], [id number], [place] tel:[phone] [facility] [place] [facility] Encounter for follow-up examination after completed treatment for conditions other than malignant nePain in right leg 4 Rolf JUAN RVT, RAYO Broussard. [address] [place] [address], [facility] [place], [id number], [place]. tel:[phone] Referring Provider: Odalis Arreola ra, [address] [place] [address], [address]. tel:[phone] [place] [facility], [address] [place] [address] Dr Sheets 1000Suite Sil[place] Machado [place], [id number], [place] tel:[phone] [facility] Varicose veins of right lower extremity with other complication s 4 Rolf JUAN RVT, RAYO Broussard. [address] [place] [address], [facility] [place], [id number], [place]. tel:[phone] Referring Provider: Odalis Arreola ra, [address] [place] [address], [address]. tel:[phone] Austen Patel Vein [facility]rian[facility], [address] [place] [address] Dr Sheets 1000Suite 1000[place]ano [place], [id number], [place] tel:[phone] [facility] Chronic venous hypertension (idiopathic) with inflammation of right lower extremity 4 Rolf JUAN RVT, RAYO Broussard. [address] [place] [address], [facility], [place], [id number], [place]. tel:[phone] Referring Provider: Odalis Arreola ra, [address] [place] [address], [address]. tel:[phone] [facility] For [facility]ast[facility] MD R[facility]TER, [address] [place] [address] [address] 1000[place]ano [place], [id number], [place] tel:[phone] [facility] Encounter for follow-up examination after completed treatment for conditions other than malignant neoplasm 4 Melissa Brush. [address] [facility], [address], [place], [place], [id number], [place]. tel:[phone] Referring Provider: Odalis Arreola ra, [address] [place] [address], [address]. tel:[phone] [facility] For [facility] Zoroastrianism MD R[facility]TER, [address] [place] [address] [facility] 1000[address] 1000[place]ano [place], [id number], [place] tel:[phone] [facility] Varicose veins of left lower extremity with other complication s 4 Rolf JUAN, BRIDGETTE, RAYO Broussard. [address] [place] [address], [facility] [place], [id number], [place]. tel:[phone] Referring Provider: Odalis Arreola ra, [address] [place] [address], [address]. tel:[phone] Austen Patel Vein Zoroastrianism MD R[facility]TER, [address] [place] [address] [facility] 1000[address] 1000Sil[place]ano [place], [id number], [place] tel:[phone] [facility] Encounter for follow-up examination after completed treatment for conditions other than malignant nePain in left leg 4 Rolf JUAN RVT, RAYO Broussard. [address] [place] [address], [place], [id number], [place]. tel:[phone] Referring Provider: Odalis Arreola ra, [address] [place] [address], [address]. tel:[phone] Austen Patel Vein [facility], [address] [place] [address] Dr Sheets 1000[address] 1000[place]ano [place], [id number], [place] tel:[phone] [facility] - [place] [facility] [place] Varicose veins of left lower extremity with other complication s 4 Rolf JUAN RVT, RAYO Broussard. [address] [place] [address], [facility] [place], [id number], [place]. tel:[phone] Referring Provider: Odalis Arreola ra, [address] [place] [address], [address]. tel:[phone] [facility], [address] [place] [address] Dr Sheets 1000ite 1000[place], [id number], [place] tel:[phone] [facility] [place] [facility] [place] Varicose veins of left lower extremity with other complication s 4 Rolf JUAN RVT, RAYO Broussard. [address] [place] [address], [facility] [place], [id number], [place]. tel:[phone] Referring Provider: Odalis Arreola ra, [address] [place] [address], [address]. tel:[phone] [facility], [address] [place] [address] Dr Sheets 1000[facility] [place] Mach[place], [id number], [place] tel:[phone] [facility] - [place] [facility] [place] No Information 4 Rolf JUAN RVT, RAYO Broussard. [address] [place] [address], [facility] [place], [id number], [place]. tel:[phone] Offic/outpt E&m Estab 5 Min Trial- Telemedicine CT & [place] [facility], [address] [place] [address] Dr Sheets 1000[address] 1000Silvano [place], [id number], [place] tel:[phone] [facility] [place] [facility] [place] Varicose veins of right lower extremity with inflammation Varicose veins of left lower extremity with inflammation Localized edemaCramp and spasmRestles s legs syndromePrur itus, unspecifiedD isorder of pigmentation , unspecified 4 Lynette Almonte. [address] [place], [place] [address], [id number], . tel:[phone] Referring Provider: Odalis Arreola ra, [address] [place] [address], [address]. tel:[phone] Offic Cons New/estab Mod 40 Sd [facility], [address] [place] [address] Dr Sheets 1000[facility] 1000[place], [id number], tel:[phone] [facility] [place] [facility] [place] Varicose veins of bilateral lower extremities with other complication sVaricose veins of right lower extremity with inflammation Varicose veins of left lower extremity with inflammation Pain in right lower legRestless legs syndromePrur itus, unspecifiedD isorder of pigmentation , unspecifiedP ain in right legPain in left legPain in left lower legCramp and spasmLocaliz ed edema 4 Rolf JUAN, BRIDGETTE, RAYO Broussard. [address] [place] [address], [facility], [id number], . tel:[phone] Referring Provider: Odalis Arreola ra, [address] [place] [address], [address]. tel:[phone] [facility], [address] [place] [address] [facility] [address] [address], [id number], tel:[phone] [facility] Varicose veins of bilateral lower extremities with pain 4 Rolf JUAN RVT, RAYO Broussard. [address] [place] [address], [facility] [place], [id number], . tel:[phone] Referring Provider: Odalis Arreola ra, [address] [place] [address], [address]. tel:[phone] Family History Family Member Type Diagnosis Age At Onset No Information Payers Payer name Insurance type Covered libertarian ID Authoriza tikike(s) [employer] [facility] [place] [id number] Social History Type Description Quantity Date Captured Comments Sex Female Smoking Status No Information Chief Complaint And Reason For Visit No Information Reason For Referral Reason For Referral No Information Plan Of Treatment Date Type Action Status Goal Diet education completed Goal Tobacco cessation counseling completed Goal Tobacco cessation counseling completed Goal Tobacco cessation counseling completed Goal Diet education completed Referral Ordered: Weight management: Referral to [...] Information Instructions Date Instruction Additional Infor mation Diet education Related to Body mass index (BMI) 27.0-27.9, adult Giving Encouragement to exercise Related to Body mass index (BMI) 27.0-27.9, adult Lifestyle education Related to B liz mass index (BMI) 27.0-27.9, adult Compression stocking usage as conservative measure Related to Varicose veins of bilateral lower extremities with pain Patient education booklet given Related to Varicose veins of bilateral lower extremities with pain Patient education booklet given Related to Varicose veins of right lower extremity with inflammation Compression stocking usage as conservative measure Related to Varicose veins of right lower extremity with inflammation Giving Encouragement to exercise Related to Body mass index (BMI) 27.0-27.9, adult Lifestyle education Related to B liz mass index (BMI) 27.0-27.9, adult Patient education booklet given Related to Varicose veins of bilateral lower extremities with other complications Pre and post instruc tions reviewed and provided Related to Varicose veins of bilateral lower extremities with other complications Diet education Related to Body mass index (BMI) 27.0-27.9, adult Assessments Type Assessment Date No Information Patient Care Teams Name Effective Dates (start - stop) Status Members No Information
[2024-05-13 10:19] VITALS: BMI 24.7
--- NOTE | 2024-05-13 10:19 | A.OFFVIS_ITS ---
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: Yes Corporate Development Intern Services: Corporate Development Intern Present Information Interpreted: clinical only Allergies No Known Allergies [No Known Allergies*] Allergy (Verified 05/13/24 10:24) Medication List - Last Reconciled 05/13/24 by Olegario Be MD cephalexin 500 mg PO Q12H clotrimazole 1% 1 appl topical BID PRN docusate sodium (Colace) 100 mg PO DAILY fluticasone propionate 50 mcg/actuation (Allergy Relief (fluticasone)) 1 spray intranasal DAILY PRN levothyroxine 125 mcg PO DAILY omeprazole 40 mg PO DAILY PRN ondansetron 4 mg PO Q12H tirzepatide (weight loss) (Zepbound) 2.5 mg subcut .QFRIDAY vitamin A palmitate 10,000 units PO DAILY HPI HPI TV 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*: Details: Start time: 10.07am, End time: 10.37am ?I spent 25 minutes speaking with the patient on the phone plus an additional 5 minutes reviewing and updating records for a total of 30 minutes HPI Comments Details: Here for preoperative appointment for panniculectomy This is the plan I recommended: 2oz of Bea[place]ont shake mixed with 6oz almond milk at 7-9am Celebrate or Fit Crunch protein bar at 10-12pm 2oz of [place] shake mixed with 6oz almond milk at 1-3pm Celebrate or Fit Crunch protein bar at 4-6pm Meal at 7pm (5 forks of protein and 5 forks of salad/veggies) PFSH Medical History (Updated 05/13/24 @ 09:41 by Pat Villaseñor RN) Arthritis Panniculitis Overweight (BMI 25.0-29.9) Plantar fasciitis Asthma Depression Anxiety Anemia Hypothyroidism Surgical History Hx of cholecystectomy S/P rotator cuff surgery History of repair of hiatal hernia Hx of hernia repair History of sleeve gastrectomy Hx of colonoscopy History of esophagogastroduodenoscopy (EGD) Hx of total knee replacement Hx of tubal ligation Hx of tonsillectomy Family History Father No problems noted. Mother Hypertension Blood clot in vein Family history of thyroid problem Diabetes mellitus Sleep apnea Son No problems noted. Son No problems noted. Son No problems noted. Daughter No problems noted. Daughter No problems noted. Daughter No problems noted. Brother No problems noted. Brother No problems noted. Sister No problems noted. Social History (Updated 02/16/24 @ 11:22 by Bella German CMA) Are you a primary technical healthcare consultant to a significant other at home: No Do you presently have visiting nurse or other home services: No Alcohol intake: current Alcohol intake frequency: holidays/special occasions only Patient Tobacco Use Status: Former Tobacco user Tobacco use type: Cigarette Telehealth Telehealth Telehealth Platform: Telephone Location of provider rendering services: practice address Location of patient: address on file Patient Identification confirmed using: Name, : Yes Telehealth method: voice only Patient verbally consented to treatment: Yes Patient verbally consented to billing insurance company: Yes Patient informed of any privacy concerns related to visit: Yes Minutes spent on Phone/Video with Pt.: 30 Assessment & Plan Assessment & Plan (1) Excess skin: Code(s): L98.7 - Excessive and redundant skin and subcutaneous tissue Category: Medical Plan: 1. Plan for panniculectomy. Risks of infection, bleeding, asymmetry, wound dehiscence and blood clots were discussed with the patient. 2. You will have a drain the abdomen that may stay a few weeks before it may be removed 3. You will need to be doing sponge baths the first 1-2 weeks. No showers. You need to have help at home to get you up and limit your activities as much as pos sible for at least the 4-6 weeks after surgery 4. We will arrange for a visiting nurse to come at home to help you with dressing changes and send me pictures of the procedures. We will send at your h ome supplies for the dressing changes. 5. Continue present nutritional plan of 2oz of [place]um[place] shake mixed with 6oz almond milk at 7-9am, Celebrate or Fit Crunch protein bar at 10-12pm, 2oz of [place] shake mixed with 6oz almond milk at 1-3pm, Celebrate or Fit Crunch protein bar at 4-6pm, Meal at 7pm (5 forks of protein and 5 forks of salad/veggies) This will improve weight loss and healing after surgery. 6. Continue all vitamins 7. Stop the Zepbound until I tell you when to begin after surgery 8. 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 Panel Today K91.2 - Postsurgical malabsorption, not elsewhere classified, Z90.3 - Acquired absence of stomach [part of] Complete Blood Count Auto Diff Today K91.2 - Postsurgical malabsorption, not elsewhere classified, Z90.3 - Acquired absence of stomach [part of] Medications: New ondansetron Only take one every 12 hours as needed if you have nausea 4 mg PO Q12H 20 tabs 0RF nausea and vomiting R11.0 - Nausea docusate sodium (Colace) 100 mg PO DAILY 90 caps 0RF K59.00 - Constipation, unspecified cephalexin 500 mg PO Q12H 60 caps 0RF M79.3 - Panniculitis, unspecified
== END 2024-05-13 10:38 | disposition home or self-care (01) ==
PROVIDERS: PCP Internal Medicine; Visit Provider Surgery
DX: L98.7 Excessive and redundant skin and subcutaneous tissue (principal)
CPT/HCPCS: 99499

== ENCOUNTER 2024-05-14 09:51 | Outpatient (REF) | payer OTHER, SELFPAY ==
[2024-05-14 10:12] LABS: MANUAL DIFF FLAG NO
--- OUTSIDE RECORDS SUMMARY | 2024-05-14 10:37 | XMS_ITS | Continuity of Care Document ---
Author Organization [facility] Address [address] [place] [address] Phone Care Team Providers Care Lead Tinner Name Role Phone Nahun CONNELLY Adal Unavailable [...] Providers Copied on Encounter [facility], [address] [place] [address] Dr Sheets 1000SuSilvano re[place], [id number], tel:[phone] [facility] No Information 5 [facility]. [address] [place] [address], [address], [place], [place], [id number], . tel:[phone] Office/Outpt E&M Established 25 Mins- CT & [place] [facility] MD [facility], [address] [place] [address] Dr Sheets 1000SuSilvano reeves [place], [id number], [place] tel:[phone] CVR - [facility] Disorder of pigmentation , unspecifiedV aricose veins of bilateral lower extremities with painCramp and spasmRestles s legs syndromeLoca lized edema 4 Rolf JUAN RVT, RAYO Broussard. [address] [place] [address], [place], [place], [id number], [place]. tel:[phone] Referring Provider: Odalis Arreola ra, [address] [place] [address], [address]. tel:[phone] [facility], [address] [place] [address] Dr Sheets 1000SuSilvano reeves [place], [id number], [place] tel:[phone] [facility] Encounter for follow-up examination after completed treatment for conditions other than malignant neVaricose veins of bilateral lower extremities with pain 4 Rolf JUAN RVT, RPVI Robert. [address] [place] [address], [facility] [place] [id number], [place]. tel:[phone] Referring Provider: Odalis Arreola ra, [address] [place] [address], [address]. tel:[phone] [facility], [address] [place] [address] Dr Sheets 1000SuSilvano re[place], [id number], [place] tel:[phone] CV[facility] - [facility] Encounter for follow-up examination after completed treatment for conditions other than malignant ne 4 Rolf JUAN RVT, RAYO Broussard. [address] [place] [address], [facility] [place], [id number], [place]. tel:[phone] Referring Provider: Odalis Arreola ra, [address] [place] [address], [address]. tel:[phone] [facility], [address] [place] [address] Dr Sheets 1000Suite 1000[place], [id number], [place] tel:[phone] CVR - [place] - [facility] Encounter for follow-up examination after completed treatment for conditions other than malignant nePain in right leg 4 Rolf JUAN RVT, RAYO Broussard. [address] [place] [address], [facility] [place], [id number], [place]. tel:[phone] Referring Provider: Odalis Arreola ra, [address] [place] [address], [address]. tel:[phone] [facility], [address] [place] [address] Dr Sheets 1000Suite [place], [id number], [place] tel:[phone] CVR - [facility] Varicose veins of right lower extremity with other complication s 4 Rolf JUAN RVT, RAYO Broussard. [address] [place] [address], [facility] [place], [id number], [place]. tel:[phone] Referring Provider: Odalis Arreola ra, [address] [place] [address], [address]. tel:[phone] [facility], [address] [place] [address] Dr Sheets 1000Suite 1000[place], [id number], [place] tel:[phone] CVR [facility] Chronic venous hypertension (idiopathic) with inflammation of right lower extremity 4 Rolf JUAN RVT, RAYO Broussard. [address] [place] [address], [facility], [place], [id number], [place]. tel:[phone] Referring Provider: Odalis Arreola ra, [address] [place] [address], [address]. tel:[phone] [facility], [address] [place] [address] [address], [id number], [place] tel:[phone] CVR [facility] Encounter for follow-up examination after completed treatment for conditions other than malignant neoplasm 4 Melissa Brush. [address], [address], [place], [place], [id number], [place]. tel:[phone] Referring Provider: Odalis Arreola ra, [address] [place] [address], [address]. tel:[phone] [facility] MD [facility], [address] [place] [address] [facility] 1000[address] 1000[place], [id number], [place] tel:[phone] [facility]icose veins of left lower extremity with other complication s 4 Rolf JUAN, BRIDGETTE, RAYO Broussard. [address] [place] [address], [facility] [place], [id number], [place]. tel:[phone] Referring Provider: Odalis Arreola ra, [address] [place] [address], [address]. tel:[phone] [facility] MD [facility], [address] [place] [address] [facility] 1000[address] 1000[place], [id number], [place] tel:[phone] CVR [facility] Encounter for follow-up examination after completed treatment for conditions other than malignant nePain in left leg 4 Rolf JUAN RVT, RAYO Broussard. [address] [place] [address], [facility], [id number], [place]. tel:[phone] Referring Provider: Odalis Arreola ra, [address] [place] [address], [address]. tel:[phone] [facility], [address] [place] [address] Dr Sheets 1000[address] 1000[place], [id number], [place] tel:[phone] [facility] - [place] [facility] [place] Varicose veins of left lower extremity with other complication s 4 Rolf JUAN RVT, RAYO Broussard. [address] [place] [address], [facility] [place], [id number], [place]. tel:[phone] Referring Provider: Odalis Arreola ra, [address] [place] [address], [address]. tel:[phone] [facility], [address] [place] [address] Dr Sheets 1000ite 1000[place], [id number], [place] tel:[phone] [facility] - [place] [facility] Varicose veins of left lower extremity with other complication s 4 Rolf JUAN RVT, RAYO Broussard. [address] [place] [address], [facility] [place], [id number], [place]. tel:[phone] Referring Provider: Odalis Arreola ra, [address] [place] [address], [address]. tel:[phone] [facility], [address] [place] [address] Dr Sheets 1000[facility] [place], [id number], [place] tel:[phone] [facility] - [place] [facility] [place] No Information 4 Rolf JUAN RVT, RAYO Broussard. [address] [place] [address], [facility] [place], [id number], [place]. tel:[phone] Offic/outpt E&m Estab 5 Min Trial- Telemedicine CT & [place] [facility], [address] [place] [address] Dr Sheets 1000[address] 1000[place], [id number], [place] tel:[phone] [facility] - [place] [facility] [place] Varicose veins of right lower extremity with inflammation Varicose veins of left lower extremity with inflammation Localized edemaCramp and spasmRestles s legs syndromePrur itus, unspecifiedD isorder of pigmentation , unspecified 4 Lynette Almonte. [address] [place], [place] [address], [id number], . tel:[phone] Referring Provider: Odalis Arreola ra, [address] [place] [address], [address]. tel:[phone] Offic Cons New/estab Mod 40 [place] [facility], [address] [place] [address] Dr Sheets 1000[facility] 1000[place], [id number], tel:[phone] [facility] - [place] [facility] [place] Varicose veins of bilateral lower extremities with other complication sVaricose veins of right lower extremity with inflammation Varicose veins of left lower extremity with inflammation Pain in right lower legRestless legs syndromePrur itus, unspecifiedD isorder of pigmentation , unspecifiedP ain in right legPain in left legPain in left lower legCramp and spasmLocaliz ed edema 4 Rolf JUAN, BRIDGETTE, RAYO Broussard. [address] [place] [address], [facility] [place], [id number], . tel:[phone] Referring Provider: Odalis Arreola ra, [address] [place] [address], [address]. tel:[phone] [facility], [address] [place] [address] [facility] [address] [address], [id number], tel:[phone] [facility] Varicose veins of bilateral lower extremities with pain 4 Rolf JUAN RVT, RAYO Broussard. [address] [place] [address], [facility] [place], [id number], . tel:[phone] Referring Provider: Odalis Arreola ra, [address] [place] [address], [address]. tel:[phone] Family History Family Member Type Diagnosis Age At Onset No Information Payers Payer name Insurance type Covered constitution party ID Authoriza tikike(s) [employer] [facility] CI [id number] Social History Type Description Quantity Date Captured [...]
[2024-05-14 10:43] LABS: Basophils Percent Auto 0.2 % (0-2); Eosinophils Absolute Auto 0.1 X10*3/uL (0.0-0.4); Eosinophils Percent Auto 1.6 % (0-4); Hematocrit 38.8 % (37.0-47.0); Hemoglobin 12.7 g/dl (12.0-16.0); Imm Gran Abs Auto 0.01 X10*3/uL (0.00-0.03); Imm Gran Pct Auto 0.2 % (0.0-0.4); Lymphocytes Absolute Auto 1.3 X10*3/uL (1.2-4.9); Lymphocytes Percent Auto 29.6 % (20-40); Mean Corpuscular HGB Conc 32.7 g/dl (31.0-35.0); Mean Corpuscular Hemoglobin 29.8 pg (27.0-33.0); Mean Corpuscular Volume 91.1 fL (80.0-98.0); Mean Platelet Volume 10.4 fL (9.4-12.3); Monocytes Absolute Auto 0.5 X10*3/uL (0.1-1.2); Monocytes Percent Auto 11.5 % (2-11); Neutrophils Absolute Auto 2.4 x10*3/uL (2.0-8.3); Neutrophils Percent Auto 56.9 % (45-73); Platelet Count 277 X10*3/uL (160-400); Red Blood Count 4.26 X10*6/uL (4.20-5.50); Red Cell Distribution Width 13.1 % (11.0-16.0); White Blood Count 4.3 X10*3/uL (4.8-10.8)
[2024-05-14 10:50] LABS: Prothrombin Time 11.8 SEC (10.9-12.4)
[2024-05-14 10:51] LABS: Estimated Average Glucose 88 mg/dL; Hemoglobin A1C 92.6176 umol/L; Hemoglobin A1c % 4.7 % (<6.0); Total Hemoglobin (HGBA1C) 3288.8442 umol/L
[2024-05-14 10:53] LABS: Partial Thromboplastin Time 29.4 SEC (26.0-36.8)
[2024-05-14 11:44] LABS: Alanine Aminotransferase 17 U/L (0-31); Alkaline Phosphatase 63 U/L (39-117); Anion Gap 10 (12-20); Aspartate Amino Transferase 44 U/L (5-31); Bilirubin Total 0.6 mg/dL (0.0-1.0); Blood Urea Nitrogen 12 mg/dL (9-16); Calcium 9.4 mg/dL (8.4-10.2); Carbon Dioxide 22 mmol/L (22-29); Chloride 108 mmol/L (96-108); Estimated Glomerular Filt Rate > 60; Glucose Random 73 mg/dL (60-115); Potassium 5.1 mmol/L (3.3-5.1); Sodium 135 mmol/L (135-145); Total Protein 7.9 g/dL (6.5-8.0)
== END 2024-05-14 09:52 | disposition home or self-care (01) ==
LOC: HO.LAB 09:51
PROVIDERS: PCP Internal Medicine; Visit Provider Surgery
DX: K91.2 Postsurgical malabsorption, not elsewhere classified (principal); Z90.3 Acquired absence of stomach [part of]
CPT/HCPCS: 36415; 80053; 83036; 85025; 85610; 85730

== ENCOUNTER 2024-05-20 06:06 | Day surgery (SDC) | payer OTHER, SELFPAY ==
[2024-05-13 09:33] VITALS: BMI 24.7
--- NOTE | 2024-05-19 08:45 | HO.ANESPROP2 ---
Documented by User: Dian Fletcher NP 05/19/24 08:46 HPI - Anesthesia Eval Consult details Narrative: 59yo F for Panniculectomy PMFSH Active Problems Active Problems: All Active Problems Excess skin (Acute) Vitamin A deficiency (Acute) Elevated liver enzymes (Acute) Excess skin of abdomen (Acute) Overweight (BMI 25.0-29.9) (Acute) Overweight (Acute) BMI 26.0-26.9,adult (Acute) Intestinal malabsorption following gastrectomy (Acute) Panniculitis (Acute) S/P rotator cuff surgery (Acute) History of sleeve gastrectomy (Acute) Past Medical History Medical History Arthritis Panniculitis Overweight (BMI 25.0-29.9) Plantar fasciitis Asthma Depression Anxiety Anemia Hypothyroidism Family History Family History Father No problems noted. Mother Hypertension Blood clot in vein Family history of thyroid problem Diabetes mellitus Sleep apnea Son No problems noted. Son No problems noted. Son No problems noted. Daughter No problems noted. Daughter No problems noted. Daughter No problems noted. Brother No problems noted. Brother No problems noted. Sister No problems noted. Surgical History Surgical History Hx of cholecystectomy S/P rotator cuff surgery History of repair of hiatal hernia Hx of hernia repair History of sleeve gastrectomy Hx of colonoscopy History of esophagogastroduodenoscopy (EGD) Hx of total knee replacement Hx of tubal ligation Hx of tonsillectomy Social History Social History Are you a primary care coordinator to a significant other at home: No Do you presently have visiting nurse or other home services: No Alcohol intake: current Alcohol intake frequency: holidays/special occasions only Patient Tobacco Use Status: Former Tobacco user Tobacco use type: Cigarette Use of substances other than those prescribed or required for medical reasons: No Have you been hit, kicked, punched, or otherwise hurt by someone within the past year? If so, by whom?: No Are you DNR?: No Advance Directives: No Advance Directives Information Provided: Yes Advance Directives on File: No Recently lost weight without trying: No Nutrition Risks: No Nutritional Risk Meds Allergies Allergy/AdvReac Type Severity Reaction Status Date / Time No Known Allergies Allergy Verified 05/13/24 10:24 [No Known Allergies*] Home Medications ?Medication ?Instructions ?Recorded ?Confirmed ?Last Taken ?Type fluticasone propionate 50 1 spray intranasal DAILY PRN Nasal 03/13/20 05/20/24 05/19/24 History mcg/actuation nasal Congestion spray,suspension (Allergy Relief (fluticasone)) levothyroxine 125 mcg tablet 125 mcg PO DAILY 03/13/20 05/20/24 05/20/24 History omeprazole 40 mg capsule,delayed 40 mg PO DAILY PRN Gastric Reflux 06/27/22 05/20/24 05/19/24 History release tirzepatide (weight loss) 2.5 2.5 mg subcut .QFRIDAY 04/01/24 05/20/24 05/07/24 History mg/0.5 mL subcutaneous pen injector (Zepbound) Exam Height,Weight and Vital Signs: Height 5 ft 4 in Weight 65.317 kg Pertinent Lab Results Pertinent Lab Results: Laboratory Tests 05/14/24 10:01 Blood Type O Positive Antibody Screen NEGATIVE Laboratory Tests 05/14/24 10:01 WBC 4.3 L Hgb 12.7 Hct 38.8 Plt Count 277 Sodium 135 Potassium 5.1 Chloride 108 Carbon Dioxide 22 BUN 12 Creatinine 0.61 Assessment and Plan Assessment Anesthesia Assessment: Chart Reviewed Documented by User: Jossie Moser MD 05/20/24 09:06 PMF Active Problems Active Problems: All Active Problems Excess skin (Acute) Vitamin A deficiency (Acute) Elevated liver enzymes (Acute) Excess skin of abdomen (Acute) Overweight (BMI 25.0-29.9) (Acute) Overweight (Acute) BMI 26.0-26.9,adult (Acute) Intestinal malabsorption following gastrectomy (Acute) Panniculitis (Acute) S/P rotator cuff surgery (Acute) History of sleeve gastrectomy (Acute) Asthma. Stable. Rare use of inhaler H/o ERI in the past. Not anymore Past Medical History Medical History Arthritis Panniculitis Overweight (BMI 25.0-29.9) Plantar fasciitis Asthma Depression Anxiety Anemia Hypothyroidism Family History Family History Father No problems noted. Mother Hypertension Blood clot in vein Family history of thyroid problem Diabetes mellitus Sleep apnea Son No problems noted. Son No problems noted. Son No problems noted. Daughter No problems noted. Daughter No problems noted. Daughter No problems noted. Brother No problems noted. Brother No problems noted. Sister No problems noted. Family history of problems with anesthesia: No Surgical History Surgical History Hx of cholecystectomy S/P rotator cuff surgery History of repair of hiatal hernia Hx of hernia repair History of sleeve gastrectomy Hx of colonoscopy History of esophagogastroduodenoscopy (EGD) Hx of total knee replacement Hx of tubal ligation Hx of tonsillectomy History of Problems with Anesthesia: No Social History Social History Are you a primary care coordinator to a significant other at home: No Do you presently have visiting nurse or other home services: No Alcohol intake: current Alcohol intake frequency: holidays/special occasions only Patient Tobacco Use Status: Former Tobacco user Tobacco use type: Cigarette Use of substances other than those prescribed or required for medical reasons: No Have you been hit, kicked, punched, or otherwise hurt by someone within the past year? If so, by whom?: No Are you DNR?: No Advance Directives: No Advance Directives Information Provided: Yes Advance Directives on File: No Recently lost weight without trying: No Nutrition Risks: No Nutritional Risk Meds Allergies Allergy/AdvReac Type Severity Reaction Status Date / Time No Known Allergies Allergy Verified 05/13/24 10:24 [No Known Allergies*] Home Medications ?Medication ?Instructions ?Recorded ?Confirmed ?Last Taken ?Type fluticasone propionate 50 1 spray intranasal DAILY PRN Nasal 03/13/20 05/20/24 05/19/24 History mcg/actuation nasal Congestion spray,suspension (Allergy Relief (fluticasone)) levothyroxine 125 mcg tablet 125 mcg PO DAILY 03/13/20 05/20/24 05/20/24 History omeprazole 40 mg capsule,delayed 40 mg PO DAILY PRN Gastric Reflux 06/27/22 05/20/24 05/19/24 History release tirzepatide (weight loss) 2.5 2.5 mg subcut .QFRIDAY 04/01/24 05/20/24 05/07/24 History mg/0.5 mL subcutaneous pen injector (Zepbound) Exam Height,Weight and Vital Signs: Height 5 ft 4 in Weight 65.317 kg Vital Signs Temp Pulse Resp BP Pulse Ox O2 Del Method 05/20/24 06:22 97.1 F 73 18 94/66 98 Room Air 05/20/24 06:15 Nasal Cannula Airway Mallampati Class: II TM Dist: >3cm (Receding chin) Neck ROM: Full Partial: Upper and Lower Loose/Missing/Broken Teeth: Yes (Partial dentures at home. Denies broken or loose teeth) Heart: RRR Lungs: CTAB Assessment and Plan Assessment Anesthesia Assessment: Anesthesia Plan Discussed and Chart Reviewed Final Anesthetic Review Family History of Problems with Anesthesia: No History of Problems with Anesthesia: No NPO: Yes ASA Class: II Final Preanesthetic Review: No Changes in Pt Med Stat, Meds/Allgs Chart Reviewed, Consent Obtained/Reviewed and Anes Risks/Benef Reviewed Patient Risk: Intermediate Procedure Risk: Intermediate Assessment/Block/Sedation in SS: Assess/Block/Sedation- Anesthetic Plan Anesthetic Plan: GA Disposition: Standard PACU
[2024-05-20] VITALS (20 sets, daily range): BP systolic 94–118; BP diastolic 46–72; PULSE 62–89; RESP 12–18; TEMP 36.1–36.3; O2SAT 97–100
--- OUTSIDE RECORDS SUMMARY | 2024-05-20 06:09 | XMS_ITS | Continuity of Care Document ---
Author Organization [facility] Address [address] [place] [address] Phone Care Team Providers [employer] Executive Name Role Phone Nahun CONNELLY Adal Unavailable [...] Providers Copied on Encounter [facility], [address] [place] [address] Dr Sheets 1000SuSilvano reeves [place], [id number], tel:[phone] [facility] No Information [address] [facility]. [address] [place] [address], [address], [place], [place], [id number], . tel:[phone] Office/Outpt E&M Established 25 Mins- [place] & [place] [facility] [place], [address] [place] [address] Dr Sheets 1000SuSilvano reeves [place], [id number], [place] tel:[phone] [facility] Disorder of pigmentation , unspecifiedV aricose veins of bilateral lower extremities with painCramp and spasmRestles s legs syndromeLoca lized edema 4 Rolf JUAN RVT, RAYO Broussard. [address] [place] [address], [place], [place], [id number], [place]. tel:[phone] Referring Provider: Odalis Arreola ra, [address] [place] [address], [address]. tel:[phone] [facility], [address] [place] [address] Dr Sheets 1000SuSilvano reeves [place], [id number], [place] tel:[phone] [facility] Encounter for follow-up examination after completed treatment for conditions other than malignant neVaricose veins of bilateral lower extremities with pain 4 Rolf JUAN RVT, RPVI Robert. [address] [place] [address], [facility] [place] [id number], [place]. tel:[phone] Referring Provider: Odalis Arreola ra, [address] [place] [address], [id number]. tel:[phone] [facility] [place], [address] [place] [address] Dr Sheets 1000SuSilvano reeves [place], [id number], [place] tel:[phone] [facility] Encounter for follow-up examination after completed treatment for conditions other than malignant ne 4 Rolf JUAN RVT, RAYO Broussard. [address] [place] [address], [facility] [place], [id number], [place]. tel:[phone] Referring Provider: Odalis Arreola ra, [address] [place] [address], [address]. tel:[phone] [facility], [address] [place] [address] Dr Sheets 1000Suite 1000[place], [id number], [place] tel:[phone] [facility] [place] [facility] [place] Encounter for follow-up examination after completed treatment for conditions other than malignant nePain in right leg 4 Rolf JUAN RVT, RAYO Broussard. [address] [place] [address], [facility] [place], [id number], [place]. tel:[phone] Referring Provider: Odalis Arreola ra, [address] [place] [address], [address]. tel:[phone] [facility], [address] [place] [address] Dr Sheets 1000Suite Sil[place] Machado [place], [id number], [place] tel:[phone] [facility] Varicose veins of right lower extremity with other complication s 4 Rolf JUAN RVT, RAYO Broussard. [address] [place] [address], [facility] [place], [id number], [place]. tel:[phone] Referring Provider: Odalis Arreola ra, [address] [place] [address], [address]. tel:[phone] [facility], [address] [place] [address] Dr Sheets 1000Suite 1000Silvano [place], [id number], [place] tel:[phone] [facility] Chronic venous hypertension (idiopathic) with inflammation of right lower extremity 4 Rolf JUAN RVT, RAYO Broussard. [address] [place] [address], [facility], [place], [id number], [place]. tel:[phone] Referring Provider: Odalis Arreola ra, [address] [place] [address], [id number]. tel:[phone] [facility], [address] [place] [address] [address] 1000[place] MD, [id number], [place] tel:[phone] [facility] Encounter for follow-up examination after completed treatment for conditions other than malignant neoplasm 4 Melissa Brush. [address] [facility], [address], [place], [place], [id number], [place]. tel:[phone] Referring Provider: Odalis Arreola ra, [address] [place] [address], [address]. tel:[phone] [facility] [place], [address] [place] [address] [facility] 1000Suite 1000[place], [id number], [place] tel:[phone] [facility] Varicose veins of left lower extremity with other complication s 4 Rolf JUAN, BRIDGETTE, RAYO Broussard. [address] [place] [address], [facility] [place], [id number], [place]. tel:[phone] Referring Provider: Odalis Arreola ra, [address] [place] [address], [address]. tel:[phone] [facility] [place], [address] [place] [address] [facility] 1000Suite 1000Silvano [place], [id number], [place] tel:[phone] [facility] Encounter for follow-up examination after completed treatment for conditions other than malignant nePain in left leg 4 Rolf JUAN RVT, RAYO Broussard. [address] [place] [address], [place], [id number], [place]. tel:[phone] Referring Provider: Odalis Arreola ra, [address] [place] [address], [address]. tel:[phone] [facility], [address] [place] [address] Dr Sheets 1000Suite 1000[place]ano [place], [id number], [place] tel:[phone] [facility] [place] [facility] [place] Varicose veins of left lower extremity with other complication s 4 Rolf JUAN RVT, RAYO Broussard. [address] [place] [address], [facility] [place], [id number], [place]. tel:[phone] Referring Provider: Odalis Arreola ra, [address] [place] [address], [address]. tel:[phone] [facility], [address] [place] [address] Dr Sheets 1000ite 1000[place], [id number], [place] tel:[phone] [facility] [place] [facility] [place] Varicose veins of left lower extremity with other complication s 4 Rolf JUAN RVT, RAYO Broussard. [address] [place] [address], [facility] [place], [id number], [place]. tel:[phone] Referring Provider: Odalis Arreola ra, [address] [place] [address], [address]. tel:[phone] [facility], [address] [place] [address] Dr Sheets 1000[facility] [place] Mach[place], [id number], [place] tel:[phone] [facility] [place] [facility] [place] No Information 4 Rolf JUAN RVT, RAYO Broussard. [address] [place] [address], [facility] [place], [id number], [place]. tel:[phone] Offic/outpt E&m Estab 5 Min Trial- Telemedicine CT & [place] [facility], [address] [place] [address] Dr Sheets 1000Suite 1000Silvano [place], [id number], [place] tel:[phone] [facility] [place] [facility] [place] Varicose veins of right lower extremity with inflammation Varicose veins of left lower extremity with inflammation Localized edemaCramp and spasmRestles s legs syndromePrur itus, unspecifiedD isorder of pigmentation , unspecified 4 Lynette Almonte. [address] [place], [place] [address], [place], [id number], . tel:[phone] Referring Provider: Odalis Arreola ra, [address] [place] [address], [address]. tel:[phone] Offic Cons New/estab Mod 40 De [facility], [address] [place] [address] Dr Sheets 1000[facility] 1000[place], [id number], tel:[phone] [facility] [place] [facility] [place] Varicose veins of bilateral lower extremities with other complication sVaricose veins of right lower extremity with inflammation Varicose veins of left lower extremity with inflammation Pain in right lower legRestless legs syndromePrur itus, unspecifiedD isorder of pigmentation , unspecifiedP ain in right legPain in left legPain in left lower legCramp and spasmLocaliz ed edema 4 Rolf JUAN, BRIDGETTE, RAYO Broussard. [address] [place] [address], [facility] [place], [id number], . tel:[phone] Referring Provider: Odalis Arreola ra, [address] [place] [address], [address]. tel:[phone] [facility], [address] [place] [address] [facility] [address] [address], [id number], tel:[phone] [facility] Varicose veins of bilateral lower extremities with pain 4 Rolf JUAN RVT, RAYO Broussard. [address] [place] [address], [facility] [place], [place], [id number], . tel:[phone] Referring Provider: Odalis Arreola ra, [address] [place] [address], [address]. tel:[phone] Family History Family Member Type Diagnosis Age At Onset No Information Payers Payer name Insurance type Covered green party ID Authoriza tikike(s) [employer] [facility] CI [id number] Social History Type Description Quantity Date Captured [...] Information Instructions Date Instruction Additional Infor mation Lifestyle education Related to B liz mass index (BMI) 27.0-27.9, adult Giving Encouragement to exercise Related to Body mass index (BMI) 27.0-27.9, adult Diet education Related to Body mass index (BMI) 27.0-27.9, adult Patient education [...] veins of right lower extremity with inflammation Pre and post instruc tions reviewed and [...]
[2024-05-20] MEDS: Lactated Ringers 1,000 ML 100 ML IVCONT (06:32)
--- NOTE | 2024-05-20 07:25 | P.HPSUR_ITS ---
Pre-Procedural Eval Section A - 24 Hr Update-Section A only Date of Service: 05/20/24 The patient is an INPATIENT: No The patient has been examined within 24 hours of the surgical procedure. The History & Physical has been completed within 30 days and I have reviewed it.: Yes Section B - Complete if H&P > 30 days Chief Complaint: Excessive and redundant skin and subcutaneous tiss Relevant Family History (Specify if Yes): No Relevant Social History: None Present Medications: None Medical History: No relevant PMH History of Previous Operations: Relevant previous surgery/procedure and date(s) (Lap sleeve gastrectomy) Allergies: Allergies Allergy/AdvReac Type Severity Reaction Status Date / Time No Known Allergies Allergy Verified 05/13/24 10:24 [No Known Allergies*] Review of Systems Sugical H&P ROS: Negative: Constitution, Cardiovascular, Respiratory, Neurological, Psychiatric, Hem-Onc, Allergic/Immunologic, Gastrointestinal, Genitourinary, Musculoskeletal, Integumentary, Endocrine and Eyes/E ars/Nose/Throat Exam Surgical H&P Exam: Normal: HEENT, Normal: Heart, Normal: Lungs, Normal: Extremities, Normal: Abdomen, Normal: Skin and Normal: Neurological Plan Diagnosis/Plan: Unchanged I have reviewed the history and physical and performed a pertinent physical examination on my patient. No changes have occurred unless specified. Time Spent With Patient Time: Total time managing care of this patient today ____ minutes.
--- NOTE | 2024-05-20 07:48 | P.BOP_ITS ---
Brief Operative Note Date of Service: 05/20/24 Pre-op diagnosis: Excess skin Post-op diagnosis: same Procedure: PROCEDURE: Panniculectomy with umbilical transposition and bilateral subcutaneous fat flaps INDICATION: This a 59 year old female who underwent laparoscopic sleeve gastrectomy on 02/24/2019. She had an excellent result achieving a BMI of 24.7 kg/m2 with a total weight loss of 106lbs, or 38.4% of her TBWL. As a result, she has developed panniculitis which has not resolved despite continuous use of clotrimazole ointment as well as skin irritation. On exam she has extreme skin laxity due to massive weight loss, with the abdominal pannus completely hanging 4cm below the pubis. Panniculectomy was recommended. We discussed the two options for the panniculectomy of using a combined vertical and horizontal incisions or just a horizontal (bikini) incision. It was my recommendation to do only horizontal incision based on her body habitus and skin laxity. The patient agreed with this. Risks and complications were discussed with the patient including bleeding, infection, umbilical loss, flap necrosis, asymmetry, dehiscence, seroma, VTE. The patient understood the risks and was in agreement to proceed with surgery. PROCEDURE: The incisions were appropriately marked at the preop area with the patient standing and laying down. After induction of general anesthesia a Nelson catheter and pneumatic compression devices were placed. The patient was prepped and draped in the usual sterile manner and the incisions were marked again and confirmed. The skin was infiltrated with lidocaine and epinephrine. The #10 blade scalpel w as used for the large incisions and the #15 blade scalpel for the umbilicus. Cautery was used to divide the subcutaneous tissues until the fascia was identified. Then I used the cautery to separate the pannus from the fascia. The inferior incision was made initially and I mobilized the flap for a several centimeters cephalad to the umbilicus. The umbilicus was incised circumferentially and detached from the surrounding tissues all the way to the fascia while its stalk was preserved. With the patient in reflex position I confirmed that the skin flaps were appropriate and would allow for the tissues to come together with reasonable tension. At that point a horizontal incision was made 4 cm above the umbilicus. #10 blade was used for the skin, cautery for the dermis and for the remaining tissues. A subcutaneous fat flap was raised from the upper skin flap in order to fill the space under the skin and support the closure of the two flaps. In addition the inferior flap was mobilized caudally for a few centimeters to create a space for the subcutaneous fat flap as well as relieve tension from the closure. A circumferential incision was made at the area where the umbilicus would be re-implanted. The umbilicus was appropriately oriented and was delivered through the defect and was secured in place with a Alisson. No bleeding was noted anywhere. One CHRISTI drain was placed from the left corner of the horizontal incision across the wound and was secured in place with a silk suture. The subcutaneous fat flap was secured under the inferior flap with several interrupted 3.0 Monocryl sutures. The two flaps were brought together and were attached at the midline of the horizontal incision with a #3.0 Monocryl suture. At that point the umbilicus was properly oriented and was re-approximated to the skin with 8 interrupted 3.0 Monocryl sutures. In a similar fashion the skin flaps were re-approximated with multiple 3.0 Monocryl sutures. The skin was closed in all incisions and umbilicus with 4.0 Monocryl sutures. Steri-strips, xeroform gauzes and gauzes were used to cover the incisions. An abdominal binder was also placed. The was awaken and was transferred to the recover room in a stable condition. I was present and performed the entire procedure. Ms. Lee was the activities assistant. Robbi Be MD, PhD, FACS Surgeon: Olegario Be MD Surgeon: Olegario Be MD Anesthesia: GETA and local Was an Fire Management Officer used for this Procedure?: No Fire Management Officer: Yuli Marcos Estimated blood loss (mL): 10 IV fluids (mL): 2,600 Urine output (mL): 160 Pathology: other (Abdominal pannus) Condition: stable Disposition: PACU
--- NOTE | 2024-05-20 07:49 | W.MHC.F2F ---
Service Date Service Date: 05/20/24 Encounter Date of encounter: 05/20/24 Reasons for Services Signs and symptoms assessed: s/p panniculectomy with drain placement Reason for senior care: wound care and other (drain care) Homebound: Leaving the home is medically contraindicated at this time without the asist of a device and/or another person due th the listed conditions above and below. Reason homebound: unable to drive Certification: Based on the above findings, I certify that this patient is confined to the home and needs intermittent senior care care, physical therapy and/or speech therapy, or continues to need occupational therapy. The patient is under my care, and I have initiated the establishment of the plan of care. The patient will be followed by a physician who will periodically review the plan of care. Time Spent With Patient Time: Total time managing care of this patient today __30__ minutes.
[2024-05-20] MEDS: ceFAZolin Sodium/Dextrose,Iso 2 GM/50 ML PIGGYBACK IV (09:04)
[2024-05-20] MEDS: HYDROmorphone HCl 0.5 MG/0.5 ML SYRINGE 0.25 MG IVPUSH ×2 (12:13→14:00)
== END 2024-05-20 17:27 | disposition home or self-care (01) ==
PROVIDERS: PCP Internal Medicine; Visit Provider Surgery
PROC: 0JB80ZZ Excision of Abdomen Subcutaneous Tissue and Fascia, Open Approach (ICD-10-PCS; CPT 15830; principal; 2024-05-20 07:30)
DX: L98.7 Excessive and redundant skin and subcutaneous tissue (principal); L29.9 Pruritus, unspecified; E65 Localized adiposity; E66.3 Overweight; Z68.26 Body mass index [BMI] 26.0-26.9, adult; Z98.84 Bariatric surgery status; Z90.3 Acquired absence of stomach [part of]; D64.9 Anemia, unspecified; F32.A Depression, unspecified; F41.9 Anxiety disorder, unspecified; J45.909 Unspecified asthma, uncomplicated; Z79.51 Long term (current) use of inhaled steroids; Z79.85 Long-term (current) use of injectable non-insulin antidiabetic drugs; Z79.899 Other long term (current) drug therapy; Z90.49 Acquired absence of other specified parts of digestive tract; Z98.890 Other specified postprocedural states; Z87.891 Personal history of nicotine dependence
CPT/HCPCS: 15830; 15847; 86850; 86900; 86901; 88304; C9088; J0131; J0690; J1100; J1171; J2003; J2004; J2250; J2371; J2405; J2704; J3010; J3370

== ENCOUNTER → 2024-05-20 06:06 | Outpatient (BNV) | payer OTHER, SELFPAY | PROVIDERS: PCP Internal Medicine; Visit Provider Physician Assistant Surgical | DX: M79.3 Panniculitis, unspecified (principal); L98.7 Excessive and redundant skin and subcutaneous tissue; Z98.84 Bariatric surgery status | CPT/HCPCS: 15830; G0180 ==

== ENCOUNTER 2024-05-21 11:41 | Outpatient (AMB) | payer OTHER, SELFPAY ==
--- NOTE | 2024-05-21 11:44 | MHC.OFFVISWM ---
VS Expanded 05/21/24 11:57 BP 116/63 Blood Pressure Location Rt brachial Blood Pressure Position Sitting Pulse 67 Pulse Source Pulse Oximeter Temp 96.7 F L Temperature Source Temporal Artery Scan Pulse Oximetry 100 Intake Visit Reasons: OV PO Panniculectomy 05/20/24 Allergies No Known Allergies [No Known Allergies*] Allergy (Verified 05/21/24 12:12) HPI Comments Details: Postop day 1, status post panniculectomy performed on 05/20/2024. She is being seen in the office today as there was no [facility]NA coverage for her insurance. This has been corrected and she has been referred to another [facility] that we will take her insurance. Overall doing well. No significant complaints at today's visit. [facility] Medical History Arthritis Panniculitis Overweight (BMI 25.0-29.9) Plantar fasciitis Asthma Depression Anxiety Anemia Hypothyroidism Surgical History (Updated 05/21/24 @ 12:12 by Bella German CMA) S/P panniculectomy Hx of cholecystectomy S/P rotator cuff surgery History of repair of hiatal hernia Hx of hernia repair History of sleeve gastrectomy Hx of colonoscopy History of esophagogastroduodenoscopy (EGD) Hx of total knee replacement Hx of tubal ligation Hx of tonsillectomy Family History Father No problems noted. Mother Hypertension Blood clot in vein Family history of thyroid problem Diabetes mellitus Sleep apnea Son No problems noted. Son No problems noted. Son No problems noted. Daughter No problems noted. Daughter No problems noted. Daughter No problems noted. Brother No problems noted. Brother No problems noted. Sister No problems noted. Social History Are you a primary urgent care nurse practitioner to a significant other at home: No Do you presently have visiting nurse or other home services: No Alcohol intake: current Alcohol intake frequency: holidays/special occasions only Patient Tobacco Use Status: Former Tobacco user Tobacco use type: Cigarette Physical Exam GI Other: Incision is clean, dry, intact. Umbilicus is viable. A proximally 25 mL of sanguinous fluid within the collection bulb Assessment & Plan Assessment & Plan (1) S/P panniculectomy: Code(s): Z98.890 - Other specified postprocedural states Category: Surgical Plan: Continue antibiotics. Continue monitoring drain output. Continue meal plan as directed by Dr. Be. Continue to wear abdominal binder. Return to the office for follow-up next week
[2024-05-21 11:57] VITALS: BP 116/63; PULSE 67; TEMP 35.9; O2SAT 100
--- OUTSIDE RECORDS SUMMARY | 2024-05-21 12:26 | XMS_ITS | Continuity of Care Document ---
Author Organization [facility] Address [address] [place] [address] Phone Care Team Providers Care Road Grader Name Role Phone Nahun CONNELLY Adal Unavailable [...] Providers Copied on Encounter Austen Patel Vein Rastafarian MD [facility], [address] [place] [address] Dr Sheets 1000SuSilvano reeves [place], [id number], tel:[phone] Austen Patel Vein Rastafarian [facility] No Information 5 [facility]. [address] [place] [address], [address], [place], [place], [id number], . tel:[phone] Office/Outpt E&M Established 25 Mins- CT & [place] Austen Patel Vein Rastafarian MD R[facility], [address] [place] [address] Dr Sheets 1000SuSilvano reeves [place], [id number], [place] tel:[phone] CVR - [facility] Disorder of pigmentation , unspecifiedV aricose veins of bilateral lower extremities with painCramp and spasmRestles s legs syndromeLoca lized edema 4 Rolf JUAN RVT, RAYO Broussard. [address] [place] [address], [place], [place], [id number], [place]. tel:[phone] Referring Provider: Odalis Arreola ra, [address] [place] [address], [address]. tel:[phone] Austen Patel Vein Rastafarian MD R[facility], [address] [place] [address] Dr Sheets 1000SuSilvano reeves [place], [id number], [place] tel:[phone] [facility] Encounter for follow-up examination after completed treatment for conditions other than malignant neVaricose veins of bilateral lower extremities with pain 4 Rolf JUAN RVT, RPVI Robert. [address] [place] [address], [facility] [place], [id number], [place]. tel:[phone] Referring Provider: Odalis Arreola ra, [address] [place] [address], [address]. tel:[phone] Austen Patel Vein Rastafarian MD [facility], [address] [place] [address] Dr Sheets 1000SuSilvano reeves [place], [id number], [place] tel:[phone] CVR - [facility] Encounter for follow-up examination after completed treatment for conditions other than malignant ne 4 Rolf JUAN RVT, RAYO Broussard. [address] [place] [address], [facility] [place], [id number], [place]. tel:[phone] Referring Provider: Odalis Arreola ra, [address] [place] [address], [address]. tel:[phone] [facility] For Vein Rast[facility]arian [facility], [address] [place] [address] Dr Sheets 1000Suite 1000[place], [id number], [place] tel:[phone] CVR - [place] [facility] [place] Encounter for follow-up examination after completed treatment for conditions other than malignant nePain in right leg 4 Rolf JUAN RVT, RAYO Broussard. [address] [place] [address], [facility] [place], [id number], [place]. tel:[phone] Referring Provider: Odalis Arreola ra, [address] [place] [address], [address]. tel:[phone] [place] [facility], [address] [place] [address] Dr Sheets 1000Suite Silv[place] Machado [place], [id number], [place] tel:[phone] CVR - [facility] Varicose veins of right lower extremity with other complication s 4 Rolf JUAN RVT, RAYO Broussard. [address] [place] [address], [facility] [place], [id number], [place]. tel:[phone] Referring Provider: Odalis Arreola ra, [address] [place] [address], [address]. tel:[phone] Austen Patel Vein Rastafarian [facility], [address] [place] [address] Dr Sheets 1000Suite 1000[place], [id number], [place] tel:[phone] CVR [facility] Chronic venous hypertension (idiopathic) with inflammation of right lower extremity 4 Rolf JUAN RVT, RAYO Broussard. [address] [place] [address], [facility], [place], [id number], [place]. tel:[phone] Referring Provider: Odalis Arreola ra, [address] [place] [address], [address]. tel:[phone] [facility] For Vein Rastafarian MD R[facility], [address] [place] [address] [address] 1000[place], [id number], [place] tel:[phone] CVR [facility] Encounter for follow-up examination after completed treatment for conditions other than malignant neoplasm 4 Melissa Brush. [address] [facility], [address], [place], [place], [id number], [place]. tel:[phone] Referring Provider: Odalis Arreola ra, [address] [place] [address], [address]. tel:[phone] Austen For Vein Rastafarian MD R[facility], [address] [place] [address] [facility] 1000Suite 1000Sil[place]ano [place], [id number], [place] tel:[phone] [facility] Varicose veins of left lower extremity with other complication s 4 Rolf JUAN, BRIDGETTE, RAYO Broussard. [address] [place] [address], [facility] [place], [id number], [place]. tel:[phone] Referring Provider: Odalis Arreola ra, [address] [place] [address], [address]. tel:[phone] Austen Patel Vein Rastafarian MD R[facility], [address] [place] [address] [facility] 1000Suite 1000Silvano [place], [id number], [place] tel:[phone] CVR [facility] Encounter for follow-up examination after completed treatment for conditions other than malignant nePain in left leg 4 Rolf JUAN RVT, RAYO Broussard. [address] [place] [address], [place], [id number], [place]. tel:[phone] Referring Provider: Odalis Arreola ra, [address] [place] [address], [address]. tel:[phone] Austen Patel Vein Rastafarian [facility], [address] [place] [address] Dr Sheets 1000Suite 1000[place]ano MD, [id number], [place] tel:[phone] CVR - [place] [facility] [place] Varicose veins of left lower extremity with other complication s 4 Rolf JUAN RVT, RAYO Broussard. [address] [place] [address], [facility] [place], [id number], [place]. tel:[phone] Referring Provider: Odalis Arreola ra, [address] [place] [address], [address]. tel:[phone] [facility], [address] [place] [address] Dr Sheets 1000ite 1000[place] MD, [id number], [place] tel:[phone] CVR - [place] [facility] [place] Varicose veins of left lower extremity with other complication s 4 Rolf JUAN RVT, RAYO Broussard. [address] [place] [address], [facility] [place], [id number], [place]. tel:[phone] Referring Provider: Odalis Arreola ra, [address] [place] [address], [address]. tel:[phone] [facility], [address] [place] [address] Dr Sheets 1000[facility] [place] Machado [place], [id number], [place] tel:[phone] CVR - [place] [facility] [place] No Information 4 Rolf JUAN RVT, RAYO Broussard. [address] [place] [address], [facility] [place], [id number], [place]. tel:[phone] Offic/outpt E&m Estab 5 Min Trial- Telemedicine CT & [place] [facility], [address] [place] [address] Dr Sheets 1000Suite 1000S[place] MD, [id number], [place] tel:[phone] CVR - [place] [facility] [place] Varicose veins of right lower extremity with inflammation Varicose veins of left lower extremity with inflammation Localized edemaCramp and spasmRestles s legs syndromePrur itus, unspecifiedD isorder of pigmentation , unspecified 4 Lynette Almonte. [address] [place], [place] [address], [id number], . tel:[phone] Referring Provider: Odalis Arreola ra, [address] [place] [address], [address]. tel:[phone] Offic Cons New/estab Mod 40 Ms [facility], [address] [place] [address] Dr Sheets 1000Suite 1000[place], [id number], tel:[phone] CVR - [facility] Pruritus, unspecifiedD isorder of pigmentation , unspecifiedP ain in right legPain in left legPain in left lower legCramp and spasmLocaliz ed edemaVaricos e veins of bilateral lower extremities with other complication sVaricose veins of right lower extremity with inflammation Varicose veins of left lower extremity with inflammation Pain in right lower legRestless legs syndrome 4 Rolf JUAN RVT, RAYO Broussard. [address] [place] [address], [facility] [place], [id number], . tel:[phone] Referring Provider: Odalis Arreola ra, [address] [place] [address], [address]. tel:[phone] Aust[facility] For Vein [facility]ast[facility], [address] [place] [address] [facility] 1000Suite 1000Silvano MD, [id number], tel:[phone] [facility] Varicose veins of bilateral lower extremities with pain 4 Rolf JUAN RVT, RAYO Broussard. [address] [place] [address], [facility] [place], [id number], . tel:[phone] Referring Provider: Odalis Arreola ra, [address] [place] [address], [address]. tel:[phone] Family History Family Member Type Diagnosis Age At Onset No Information Payers Payer name Insurance type Covered alliance party ID Authoriza tikike(s) [employer] [place] CI [id number] Social History Type Description Quantity Date Captured [...] veins of bilateral lower extremities with pain Diet education Related to Body mass index [...] of bilateral lower extremities with other complications Assessments Type Assessment Date No Information Patient Care Teams Name Effective Dates (start - stop) Status Members No Information
== END 2024-05-21 12:12 | disposition home or self-care (01) ==
PROVIDERS: PCP Internal Medicine; Visit Provider Physician Assistant Surgical
DX: Z98.890 Other specified postprocedural states (principal)
CPT/HCPCS: 99024

== ENCOUNTER → 2024-05-21 11:41 | Outpatient (BNVA) | payer OTHER, SELFPAY | PROVIDERS: PCP Internal Medicine; Visit Provider Physician Assistant Surgical | DX: Z48.817 Encounter for surgical aftercare following surgery on the skin and subcutaneous tissue (principal); Z98.890 Other specified postprocedural states | CPT/HCPCS: 99212 ==

== ENCOUNTER 2024-05-26 12:54 | Outpatient (AMB) | payer OTHER, SELFPAY ==
--- OUTSIDE RECORDS SUMMARY | 2024-05-26 13:03 | XMS_ITS | Continuity of Care Document ---
Author Organization [facility] Address [address] [place] [address] Phone Care Team Providers Care Technical Implementation Lead Name Role Phone Nahun CONNELLY Adal Unavailable [...] Veins; Uni/ CT & [place] J Endovenous Laser, 1st [...] Encounter Austen Patel Vein [facility] MD [facility], [address] [place] [address] Dr Sheets 1000SuSilvano reeves MD, [id number], tel:[phone] Austen Patel Vein [facility] No Information 5 [facility]. [address] [place] [address], [address], [place], [place], [id number], . tel:[phone] Office/Outpt E&M Established 25 Mins- CT & [place] Austen Patel Vein [facility] MD [facility]TER, [address] [place] [address] Dr Sheets 1000SuSilvano reeves MD, [id number], [place] tel:[phone] CVR - [facility] Disorder of pigmentation , unspecifiedV aricose veins of bilateral lower extremities with painCramp and spasmRestles s legs syndromeLoca lized edema 4 Rolf JUAN RVT, RAYO Broussard. [address] [place] [address], [place], [place], [id number], [place]. tel:[phone] Referring Provider: Odalis Arreola ra, [address] [place] [address], [address]. tel:[phone] Austen Patel Vein [facility] MD [facility], [address] [place] [address] Dr Sheets 1000SuSilvano reeves MD, [id number], [place] tel:[phone] [facility] Encounter for follow-up examination after completed treatment for conditions other than malignant neVaricose veins of bilateral lower extremities with pain 4 Rolf JUAN RVT, RPVI Robert. [address] [place] [address], [facility] [place], [id number], [place]. tel:[phone] Referring Provider: Odalis Arreola ra, [address] [place] [address], [address]. tel:[phone] Austen Patel [facility]in [facility] MD [facility], [address] [place] [address] Dr Sheets 1000SuSilvano reeves MD, [id number], [place] tel:[phone] [facility]R - [place] [facility] [place] Encounter for follow-up examination after completed treatment for conditions other than malignant ne 4 Rolf JUAN RVT, RAYO Broussard. [address] [place] [address], [place], [place], [id number], [place]. tel:[phone] Referring Provider: Odalis Arreola ra, [address] [place] [address], [address]. tel:[phone] [facility], [address] [place] [address] [address] 1000Silvano [place], [id number], [place] tel:[phone] [facility] - [facility] Varicose veins of right lower extremity with other complication s 4 Rolf JUAN RVT, RAYO Broussard. [address] [place] [address], [place], [place], [id number], [place]. tel:[phone] Referring Provider: Odalis Arreola ra, [address] [place] [address], [address]. tel:[phone] [facility], [address] [place] [address] Dr Sheets 1000Suite [place] Machado [place], [id number], [place] tel:[phone] CVR - [facility] Encounter for follow-up examination after completed treatment for conditions other than malignant nePain in right leg 4 Rolf JUAN RVT, RAYO Broussard. [address] [place] [address], [facility] [place], [id number], [place]. tel:[phone] Referring Provider: Odalis Arreola ra, [address] [place] [address], [address]. tel:[phone] Austen Patel Vein [facility], [address] [place] [address] Dr Sheets 1000Suite 1000Silvano MD, [id number], [place] tel:[phone] CVR [facility] Chronic venous hypertension (idiopathic) with inflammation of right lower extremity 4 Rolf JUAN RVT, RAYO Broussard. [address] [place] [address], [facility], [place], [id number], [place]. tel:[phone] Referring Provider: Odalis rAreola ra, [address] [place] [address], [address]. tel:[phone] [facility] MD [facility], [address] [place] [address] [address]Suite 1000Silvano MD, [id number], [place] tel:[phone] CVR [facility] Encounter for follow-up examination after completed treatment for conditions other than malignant neoplasm 4 Melissa Brush. [address] [facility], [address], [place], [place], [id number], [place]. tel:[phone] Referring Provider: Odalis Arreola ra, [address] [place] [address], [address]. tel:[phone] [facility] For [facility] MD [facility], [address] [place] [address] [facility] 1000Suite 1000Silvano [place], [id number], [place] tel:[phone] [facility] Varicose veins of left lower extremity with other complication s 4 Rolf JUAN, BRIDGETTE, RAYO Broussard. [address] [place] [address], [facility] [place], [id number], [place]. tel:[phone] Referring Provider: Odalis Arreola ra, [address] [place] [address], [address]. tel:[phone] Austen Patel [facility]in [facility] MD [facility], [address] [place] [address] [facility] 1000Suite 1000Silvano [place], [id number], [place] tel:[phone] CVR [facility] Encounter for follow-up examination after completed treatment for conditions other than malignant nePain in left leg 4 Rolf JUAN RVT, RAYO Broussard. [address] [place] [address], [place], [id number], [place]. tel:[phone] Referring Provider: Odalis Arreola ra, [address] [place] [address], [address]. tel:[phone] Austen Patel Vein [facility], [address] [place] [address] Dr Sheets 1000Suite 1000Silvano [place], [id number], [place] tel:[phone] CVR - [place] [facility] [place] Varicose veins of left lower extremity with other complication s 4 Rolf JUAN RVT, RAYO Broussard. [address] [place] [address], [facility] [place], [id number], [place]. tel:[phone] Referring Provider: Odalis Arreola ra, [address] [place] [address], [address]. tel:[phone] [facility], [address] [place] [address] Dr Sheets 1000ite 1000Silvano MD, [id number], [place] tel:[phone] [facility]R - [place] Varicose veins of left lower extremity with other complication s 4 Rolf JUAN RVT, RAYO Broussard. [address] [place] [address], [facility] [place], [id number], [place]. tel:[phone] Referring Provider: Odalis Arreola ra, [address] [place] [address], [address]. tel:[phone] [facility], [address] [place] [address] Dr Sheets 1000[facility] Sil[place] Machado [place], [id number], [place] tel:[phone] [facility] - [place] [facility] [place] No Information 4 Rolf JUAN RVT, RAYO Broussard. [address] [place] [address], [facility] [place], [id number], [place]. tel:[phone] Offic/outpt E&m Estab 5 Min Trial- Telemedicine CT & [place] [facility], [address] [place] [address] Dr Sheets 1000Suite 1000Silvano MD, [id number], [place] tel:[phone] [facility] - [place] [facility] [place] Varicose veins of right lower extremity with inflammation Varicose veins of left lower extremity with inflammation Localized edemaCramp and spasmRestles s legs syndromePrur itus, unspecifiedD isorder of pigmentation , unspecified 4 Lynette Almonet. [address] [place], [place] [address]f[place], [place], [id number], . tel:[phone] Referring Provider: Odalis Arreola ra, [address] [place] [address], [address]. tel:[phone] Offic Cons New/estab Mod 40 La [facility], [address] [place] [address] Dr Sheets 1000[facility] 1000Silv[place], [id number], tel:[phone] [facility] - [place] [facility] [place] Varicose veins of bilateral lower extremities with other complication sVaricose veins of right lower extremity with inflammation Varicose veins of left lower extremity with inflammation Pain in right lower legRestless legs syndromePrur itus, unspecifiedD isorder of pigmentation , unspecifiedP ain in right legPain in left legPain in left lower legCramp and spasmLocaliz ed edema 4 Rolf JUAN, BRIDGETTE, RAYO Broussard. [address] [place] [address], [facility] [place], [id number], . tel:[phone] Referring Provider: Odalis Arreola ra, [address] [place] [address], [address]. tel:[phone] [facility] For [facility], [address] [place] [address] [facility] 1000[place] [address]Sil[place], [id number], tel:[phone] [facility] Varicose veins of bilateral lower extremities with pain 4 Rolf JUAN RVT, RAYO Broussard. [address] [place] [address], [facility] [place], [id number], . tel:[phone] Referring Provider: Odalis Arreola ra, [address] [place] [address], [address]. tel:[phone] Family History Family Member Type Diagnosis Age At Onset No Information Payers Payer name Insurance type Covered constitution party ID Authoriza tikike(s) [employer] [facility] CI [id number] Social History Type Description Quantity Date Captured [...] to Body mass index (BMI) 27.0-27.9, adult Feb-22-2024 Lifestyle education Related to B liz mass [...]
--- NOTE | 2024-05-26 13:33 | MHC.OFFVISWM ---
VS Expanded 05/26/24 13:34 BP 92/66 Blood Pressure Location Rt brachial Blood Pressure Position Sitting Pulse 82 Pulse Source Pulse Oximeter Temp 97.2 F Temperature Source Temporal Artery Scan Pulse Oximetry 98 Oxygen Delivery Method Room Air Intake Visit Reasons: OV PO Panniculectomy 05/20/24 Allergies No Known Allergies [No Known Allergies*] Allergy (Verified 05/21/24 12:12) HPI Comments Details: Very pleasant 59-year-old female returns to the office today in follow-up. She is status post panniculectomy performed on 05/20/2024. She has been taking her antibiotics and following the meal plan as recommended by Dr. Be. Reports approximately 40-50 mL of serosanguineous fluid from the collection bulb on a daily basis. [facility] Medical History Arthritis Panniculitis Overweight (BMI 25.0-29.9) Plantar fasciitis Asthma Depression Anxiety Anemia Hypothyroidism Surgical History (Updated 05/21/24 @ 12:12 by Bella German CMA) S/P panniculectomy Hx of cholecystectomy S/P rotator cuff surgery History of repair of hiatal hernia Hx of hernia repair History of sleeve gastrectomy Hx of colonoscopy History of esophagogastroduodenoscopy (EGD) Hx of total knee replacement Hx of tubal ligation Hx of tonsillectomy Family History Father No problems noted. Mother Hypertension Blood clot in vein Family history of thyroid problem Diabetes mellitus Sleep apnea Son No problems noted. Son No problems noted. Son No problems noted. Daughter No problems noted. Daughter No problems noted. Daughter No problems noted. Brother No problems noted. Brother No problems noted. Sister No problems noted. Social History Are you a primary field care coordinator to a significant other at home: No Do you presently have visiting nurse or other home services: No Alcohol intake: current Alcohol intake frequency: holidays/special occasions only Patient Tobacco Use Status: Former Tobacco user Tobacco use type: Cigarette Physical Exam Vital Signs: Last Vital Signs Temp 97.2 F 05/26/24 13:34 Pulse 82 05/26/24 13:34 BP 92/66 05/26/24 13:34 Pulse Ox 98 05/26/24 13:34 Oxygen Delivery Method Room Air 05/26/24 13:34 Skin Other: Transverse incision healing nicely. Umbilicus is viable. No evidence of dehiscence. Assessment & Plan Assessment & Plan (1) S/P panniculectomy: Code(s): Z98.890 - Other specified postprocedural states Category: Surgical Plan: Incisions are healing nicely. Continue current meal plan and antibiotics. Continue dressings. She feels as though she does not need VNA any longer. Return to clinic 1 week.
[2024-05-26 13:34] VITALS: BP 92/66; PULSE 82; TEMP 36.2; O2SAT 98
== END 2024-05-26 13:50 | disposition home or self-care (01) ==
PROVIDERS: PCP Internal Medicine; Visit Provider Physician Assistant Surgical
DX: Z98.890 Other specified postprocedural states (principal)
CPT/HCPCS: 99024

== ENCOUNTER → 2024-05-26 12:54 | Outpatient (BNVA) | payer OTHER, SELFPAY | PROVIDERS: PCP Internal Medicine; Visit Provider Physician Assistant Surgical | DX: Z48.817 Encounter for surgical aftercare following surgery on the skin and subcutaneous tissue (principal); Z98.890 Other specified postprocedural states | CPT/HCPCS: 99212 ==

== ENCOUNTER 2024-06-03 14:13 | Outpatient (AMB) | payer OTHER, SELFPAY ==
--- NOTE | 2024-06-03 14:21 | A.OFFVIS_ITS ---
VS Expanded 06/03/24 14:43 BP 89/59 L Blood Pressure Location Lt brachial Blood Pressure Position Sitting Pulse 70 Pulse Source Pulse Oximeter Temp 97.4 F Pulse Oximetry 99 Oxygen Delivery Method Room Air Intake Visit Reasons: OV PO Panniculectomy 05/20/24 Allergies No Known Allergies [No Known Allergies*] Allergy (Verified 05/21/24 12:12) HPI Comments Details: Very pleasant 59-year-old female returns to the office today in follow-up. She is status post panniculectomy performed on 05/20/2024. She has been taking her antibiotics and following the meal plan as recommended by Dr. Be. Reports approximately 30-40 mL of serosanguineous fluid from the collection bulb on a daily basis. [facility] Medical History Arthritis Panniculitis Overweight (BMI 25.0-29.9) Plantar fasciitis Asthma Depression Anxiety Anemia Hypothyroidism Surgical History (Updated 05/21/24 @ 12:12 by Bella German CMA) S/P panniculectomy Hx of cholecystectomy S/P rotator cuff surgery History of repair of hiatal hernia Hx of hernia repair History of sleeve gastrectomy Hx of colonoscopy History of esophagogastroduodenoscopy (EGD) Hx of total knee replacement Hx of tubal ligation Hx of tonsillectomy Family History Father No problems noted. Mother Hypertension Blood clot in vein Family history of thyroid problem Diabetes mellitus Sleep apnea Son No problems noted. Son No problems noted. Son No problems noted. Daughter No problems noted. Daughter No problems noted. Daughter No problems noted. Brother No problems noted. Brother No problems noted. Sister No problems noted. Social History Are you a primary spiritual care coordinator to a significant other at home: No Do you presently have visiting nurse or other home services: No Alcohol intake: current Alcohol intake frequency: holidays/special occasions only Patient Tobacco Use Status: Former Tobacco user Tobacco use type: Cigarette Physical Exam Skin Other: Transverse and umbilical incisions healing nicely. No evidence of dehiscence. Assessment & Plan Assessment & Plan (1) S/P panniculectomy: Code(s): Z98.890 - Other specified postprocedural states Category: Surgical Plan: Patient continues to show improvement. No evidence of infection or dehiscence. Continue antibiotics and meal plan
[2024-06-03 14:43] VITALS: BP 89/59; PULSE 70; TEMP 36.3; O2SAT 99
== END 2024-06-03 14:43 | disposition home or self-care (01) ==
PROVIDERS: PCP Internal Medicine; Visit Provider Physician Assistant Surgical
DX: Z98.890 Other specified postprocedural states (principal)
CPT/HCPCS: 99024

== ENCOUNTER → 2024-06-03 14:13 | Outpatient (BNVA) | payer OTHER, SELFPAY | PROVIDERS: PCP Internal Medicine; Visit Provider Physician Assistant Surgical | DX: Z48.817 Encounter for surgical aftercare following surgery on the skin and subcutaneous tissue (principal); Z98.890 Other specified postprocedural states | CPT/HCPCS: 99212 ==

== ENCOUNTER 2024-06-10 10:27 | Outpatient (AMB) | payer OTHER, SELFPAY ==
--- NOTE | 2024-06-10 10:30 | MHC.OFFVISWM ---
VS Expanded 06/10/24 10:37 BP 94/59 L Blood Pressure Location Rt brachial Blood Pressure Position Sitting Pulse 79 Pulse Oximetry 99 Oxygen Delivery Method Room Air Height 5 ft 4 in Weight 137 lb BMI 23.5 Body Fat % 23.5 Body Fat Mass 44.6 Fat Free Mass 92.4 Visceral Fat Rating 7.0 Body Water % 47.8 Body Water Mass 65.4 Muscle Mass/Score 87.8 Basal Metabolic Rate/Score 1,253 Intake Visit Reasons: OV PO Panniculectomy 05/20/24 Allergies No Known Allergies [No Known Allergies*] Allergy (Verified 06/10/24 10:37) Medication List - Last Reconciled 06/10/24 by GANGA Lopez cephalexin 500 mg PO Q12H clotrimazole 1% appl topical docusate sodium (Stool Softener) mg PO DAILY fluticasone propionate 50 mcg/actuation (Allergy Relief (fluticasone)) 1 spray intranasal DAILY PRN levothyroxine mcg PO DAILY omeprazole 40 mg PO DAILY PRN ondansetron 4 mg PO Q12H tirzepatide (weight loss) (Zepbound) 2.5 mg subcut .QFRIDAY vitamin A PO DAILY HPI Comments Details: 59-year-old female returns to the office today in follow-up. She is status post panniculectomy performed on 05/20/2024. She has been taking her antibiotics and following the meal plan as recommended by Dr. Be. Reports approximately 25cc mL of serosanguineous fluid from the collection bulb on a daily basis although one day this week was as high as 50cc. No fevers at home. [facility] Medical History Arthritis Panniculitis Overweight (BMI 25.0-29.9) Plantar fasciitis Asthma Depression Anxiety Anemia Hypothyroidism Surgical History (Updated 05/21/24 @ 12:12 by Bella German CMA) S/P panniculectomy Hx of cholecystectomy S/P rotator cuff surgery History of repair of hiatal hernia Hx of hernia repair History of sleeve gastrectomy Hx of colonoscopy History of esophagogastroduodenoscopy (EGD) Hx of total knee replacement Hx of tubal ligation Hx of tonsillectomy Family History Father No problems noted. Mother Hypertension Blood clot in vein Family history of thyroid problem Diabetes mellitus Sleep apnea Son No problems noted. Son No problems noted. Son No problems noted. Daughter No problems noted. Daughter No problems noted. Daughter No problems noted. Brother No problems noted. Brother No problems noted. Sister No problems noted. Social History Are you a primary career guidance technician to a significant other at home: No Do you presently have visiting nurse or other home services: No Alcohol intake: current Alcohol intake frequency: holidays/special occasions only Patient Tobacco Use Status: Former Tobacco user Tobacco use type: Cigarette Physical Exam Vital Signs: Last Vital Signs Pulse 79 06/10/24 10:37 BP 94/59 L 06/10/24 10:37 Pulse Ox 99 06/10/24 10:37 Oxygen Delivery Method Room Air 06/10/24 10:37 Const General: cooperative, comfortable and no acute distress Orientation/consciousness: patient oriented x3 GI Other: soft, nontender, nondistended incisions healing well, no evidence of dehiscence or infection drain output serosanguinous, drain site clean Neuro General: patient oriented x3 Assessment & Plan Assessment & Plan (1) S/P panniculectomy: Code(s): Z98.890 - Other specified postprocedural states Category: Surgical (2) History of sleeve gastrectomy: Comment: 02/24/2019 Code(s): Z90.3 - Acquired absence of stomach [part of] Category: Surgical Plan Doing well after panniculectomy. Incisions healing well. Drain output still too high to remove. Umbilical sutures removed today without difficulty. Continue abx, meal plan. RTC 1 week. I spent a total of 30 minutes reviewing/updating records, examining the patient and counseling the patient on weight management as detailed above.
[2024-06-10 10:37] VITALS: BP 94/59; PULSE 79; O2SAT 99; BMI 23.5
== END 2024-06-10 11:12 | disposition home or self-care (01) ==
PROVIDERS: PCP Internal Medicine; Visit Provider Physician Assistant Surgical
DX: Z98.890 Other specified postprocedural states (principal); Z90.3 Acquired absence of stomach [part of]
CPT/HCPCS: 99024

== ENCOUNTER → 2024-06-10 10:27 | Outpatient (BNVA) | payer OTHER, SELFPAY | PROVIDERS: PCP Internal Medicine; Visit Provider Physician Assistant Surgical | DX: Z48.817 Encounter for surgical aftercare following surgery on the skin and subcutaneous tissue (principal); Z98.84 Bariatric surgery status; Z98.890 Other specified postprocedural states | CPT/HCPCS: 99212 ==

== ENCOUNTER 2024-06-16 10:54 | Outpatient (AMB) | payer OTHER, SELFPAY ==
--- NOTE | 2024-06-16 11:03 | MHC.OFFVISWM ---
VS Expanded 06/16/24 11:06 BP 104/62 Blood Pressure Location Rt brachial Blood Pressure Position Sitting Pulse 67 Pulse Source Pulse Oximeter Temp 97.6 F Temperature Source Temporal Artery Scan Pulse Oximetry 100 Oxygen Delivery Method Room Air Intake Visit Reasons: OV PO Panniculectomy 05/20/24 Allergies No Known Allergies [No Known Allergies*] Allergy (Verified 06/16/24 11:06) HPI Comments Details: 59-year-old female, status post panniculectomy performed on 05/20/2024. She reports a proximally 10 mL of serous fluid from the collection bulb over the last 4 days, 15 mL per day over the last 2 days prior to that and 20 mL per day for the last 3 days prior to that. She continues antibiotics. Continues following the meal plan as directed by Dr. Be including 4 oz of premade shake mixed with 4 oz of almond milk, protein bar, another shake and a meal. She offers no complaints at today's visit. [facility] Medical History Arthritis Panniculitis Overweight (BMI 25.0-29.9) Plantar fasciitis Asthma Depression Anxiety Anemia Hypothyroidism Surgical History (Updated 05/21/24 @ 12:12 by Bella German CMA) S/P panniculectomy Hx of cholecystectomy S/P rotator cuff surgery History of repair of hiatal hernia Hx of hernia repair History of sleeve gastrectomy Hx of colonoscopy History of esophagogastroduodenoscopy (EGD) Hx of total knee replacement Hx of tubal ligation Hx of tonsillectomy Family History Father No problems noted. Mother Hypertension Blood clot in vein Family history of thyroid problem Diabetes mellitus Sleep apnea Son No problems noted. Son No problems noted. Son No problems noted. Daughter No problems noted. Daughter No problems noted. Daughter No problems noted. Brother No problems noted. Brother No problems noted. Sister No problems noted. Social History Are you a primary career and technology education teacher to a significant other at home: No Do you presently have visiting nurse or other home services: No Alcohol intake: current Alcohol intake frequency: holidays/special occasions only Patient Tobacco Use Status: Former Tobacco user Tobacco use type: Cigarette Physical Exam Skin Other: Transverse incision is healing nicely. Umbilicus is viable. Assessment & Plan Assessment & Plan (1) S/P panniculectomy: Code(s): Z98.890 - Other specified postprocedural states Category: Surgical Plan: Drain removed without difficulty. Patient told to keep the drain site clean, dry, covered for the next 48 hours. She may shower on Friday however no bath. Continue wearing abdominal binder. Continue antibiotics for 2 more weeks. Continue meal plan. Return to clinic 2 weeks.
[2024-06-16 11:06] VITALS: BP 104/62; PULSE 67; TEMP 36.4; O2SAT 100
== END 2024-06-16 11:26 | disposition home or self-care (01) ==
LOC: HO.HBS 10:54
PROVIDERS: PCP Internal Medicine; Visit Provider Physician Assistant Surgical
DX: Z98.890 Other specified postprocedural states (principal)
CPT/HCPCS: 99024

== ENCOUNTER → 2024-06-16 10:54 | Outpatient (BNVA) | payer OTHER, SELFPAY | PROVIDERS: PCP Internal Medicine; Visit Provider Physician Assistant Surgical | DX: Z48.817 Encounter for surgical aftercare following surgery on the skin and subcutaneous tissue (principal); Z98.890 Other specified postprocedural states | CPT/HCPCS: 99212 ==

== ENCOUNTER 2024-07-01 12:46 | Outpatient (AMB) | payer OTHER, SELFPAY ==
--- NOTE | 2024-07-01 12:50 | A.OFFVIS_ITS ---
VS Expanded 07/01/24 12:58 BP 113/64 Blood Pressure Location Lt brachial Blood Pressure Position Sitting Pulse 72 Height 5 ft 4 in Weight 132 lb 6.6 oz BMI 22.7 Body Fat % 22.8 Body Fat Mass 44.4 Fat Free Mass 88.2 Visceral Fat Rating 7.0 Body Water % 47.1 Body Water Mass 62.4 Muscle Mass/Score 83.8 Basal Metabolic Rate/Score 1,205 Intake Visit Reasons: OV PO Panniculectomy 05/20/24 Blast Furnace Operator Required: No Allergies No Known Allergies [No Known Allergies*] Allergy (Verified 07/01/24 13:03) HPI Comments Details: 59-year-old female returns to the office today in follow-up. She is status post panniculectomy performed on 05/20/2024. Drain was removed at her last visit approximately 2 weeks ago. She denies any abdominal pain, although there has been some drainage from the umbilical site. Continues to follow the meal plan. [facility] Medical History Arthritis Panniculitis Overweight (BMI 25.0-29.9) Plantar fasciitis Asthma Depression Anxiety Anemia Hypothyroidism Surgical History S/P panniculectomy Hx of cholecystectomy S/P rotator cuff surgery History of repair of hiatal hernia Hx of hernia repair History of sleeve gastrectomy Hx of colonoscopy History of esophagogastroduodenoscopy (EGD) Hx of total knee replacement Hx of tubal ligation Hx of tonsillectomy Family History Father No problems noted. Mother Hypertension Blood clot in vein Family history of thyroid problem Diabetes mellitus Sleep apnea Son No problems noted. Son No problems noted. Son No problems noted. Daughter No problems noted. Daughter No problems noted. Daughter No problems noted. Brother No problems noted. Brother No problems noted. Sister No problems noted. Social History Are you a primary wild animal caretaker to a significant other at home: No Do you presently have visiting nurse or other home services: No Alcohol intake: current Alcohol intake frequency: holidays/special occasions only Patient Tobacco Use Status: Former Tobacco user Tobacco use type: Cigarette Physical Exam Vital Signs: Last Vital Signs Pulse 72 07/01/24 12:58 BP 113/64 07/01/24 12:58 BMI result Body Mass Index 22.7 GI Other: Transverse abdominal incision healing nicely. Umbilicus is viable however there is dehiscence in the 4-7 o'clock position without evidence of infection. Assessment & Plan Assessment & Plan (1) S/P panniculectomy: Code(s): Z98.890 - Other specified postprocedural states Category: Surgical Plan: Transverse incision healing very nicely. The umbilicus has slightly dehisced a proximally 5 mm in the 4-7 o'clock position. No evidence of infection. Continue to keep this area clean dry and covered. Return to clinic 3 weeks.
[2024-07-01 12:58] VITALS: BP 113/64; PULSE 72; BMI 22.7
== END 2024-07-01 13:46 | disposition home or self-care (01) ==
LOC: HO.HBS 12:47
PROVIDERS: PCP Internal Medicine; Visit Provider Physician Assistant Surgical
DX: Z98.890 Other specified postprocedural states (principal)
CPT/HCPCS: 99024

== ENCOUNTER → 2024-07-01 12:46 | Outpatient (BNVA) | payer OTHER, SELFPAY | PROVIDERS: PCP Internal Medicine; Visit Provider Physician Assistant Surgical | DX: Z48.817 Encounter for surgical aftercare following surgery on the skin and subcutaneous tissue (principal); Z98.890 Other specified postprocedural states | CPT/HCPCS: 99212 ==

== ENCOUNTER 2024-08-04 12:46 | Outpatient (AMB) | payer OTHER, SELFPAY ==
--- NOTE | 2024-08-04 12:48 | MHC.OFFVISWM ---
VS Expanded 08/04/24 13:11 BP 111/71 Blood Pressure Location Rt brachial Blood Pressure Position Sitting Pulse 60 Pulse Source Pulse Oximeter Temp 97.5 F Temperature Source Temporal Artery Scan Pulse Oximetry 100 Oxygen Delivery Method Room Air Height 5 ft 4 in Weight 131 lb 6.4 oz BMI 22.6 Body Fat % 31.4 Body Fat Mass 41.2 Fat Free Mass 90.2 Visceral Fat Rating 6.0 Body Water % 48.7 Body Water Mass 64.0 Muscle Mass/Score 85.6 Basal Metabolic Rate/Score 1,223 Intake Visit Reasons: OV PO Panniculectomy 05/20/24 *Okay Per MB* Allergies No Known Allergies [No Known Allergies*] Allergy (Verified 08/04/24 13:01) HPI Comments Details: Patient is a pleasant 59-year-old female who returns to the office today in follow-up. She is status post panniculectomy performed on 05/20/2024. She continues to have very minimal drainage to the inferior aspect of her umbilical incision. No problems with the transverse incision. She continues to follow meal plan. Has no complaints. [facility] Medical History Arthritis Panniculitis Overweight (BMI 25.0-29.9) Plantar fasciitis Asthma Depression Anxiety Anemia Hypothyroidism Surgical History S/P panniculectomy Hx of cholecystectomy S/P rotator cuff surgery History of repair of hiatal hernia Hx of hernia repair History of sleeve gastrectomy Hx of colonoscopy History of esophagogastroduodenoscopy (EGD) Hx of total knee replacement Hx of tubal ligation Hx of tonsillectomy Family History Father No problems noted. Mother Hypertension Blood clot in vein Family history of thyroid problem Diabetes mellitus Sleep apnea Son No problems noted. Son No problems noted. Son No problems noted. Daughter No problems noted. Daughter No problems noted. Daughter No problems noted. Brother No problems noted. Brother No problems noted. Sister No problems noted. Social History Are you a primary care specialist to a significant other at home: No Do you presently have visiting nurse or other home services: No Alcohol intake: current Alcohol intake frequency: holidays/special occasions only Patient Tobacco Use Status: Former Tobacco user Tobacco use type: Cigarette Physical Exam Vital Signs: Last Vital Signs BP 111/71 08/04/24 13:11 Skin Other: Transverse incision healing nicely. 1 mm opening at the 6 o'clock position of the umbilicus. No evidence of infection. Assessment & Plan Assessment & Plan (1) S/P panniculectomy: Code(s): Z98.890 - Other specified postprocedural states Category: Surgical Plan: Healing area of umbilical dehiscence in the inferior portion. No evidence of infection. Continue abdominal binder. Return to clinic 3 weeks.
[2024-08-04 13:11] VITALS: BP 111/71; PULSE 60; TEMP 36.4; O2SAT 100; BMI 22.6
== END 2024-08-04 13:28 | disposition home or self-care (01) ==
LOC: HO.HBS 12:46
PROVIDERS: PCP Internal Medicine; Visit Provider Physician Assistant Surgical
DX: Z98.890 Other specified postprocedural states (principal)
CPT/HCPCS: 99024

== ENCOUNTER → 2024-08-04 12:46 | Outpatient (BNVA) | payer OTHER, SELFPAY | PROVIDERS: PCP Internal Medicine; Visit Provider Physician Assistant Surgical | DX: Z48.817 Encounter for surgical aftercare following surgery on the skin and subcutaneous tissue (principal); Z98.890 Other specified postprocedural states | CPT/HCPCS: 99212 ==

== ENCOUNTER 2024-08-25 12:43 | Outpatient (AMB) | payer OTHER, SELFPAY ==
--- NOTE | 2024-08-25 12:57 | MHC.OFFVISWM ---
VS Expanded 08/25/24 13:13 BP 124/70 Blood Pressure Location Rt brachial Blood Pressure Position Sitting Pulse 61 Pulse Source Pulse Oximeter Temp 96.8 F Temperature Source Temporal Artery Scan Pulse Oximetry 100 Oxygen Delivery Method Room Air Height 5 ft 4 in Weight 131 lb 9.6 oz BMI 22.6 Body Fat % 30.0 Body Fat Mass 39.4 Fat Free Mass 92.0 Visceral Fat Rating 6.0 Body Water % 49.5 Body Water Mass 65.0 Muscle Mass/Score 87.4 Basal Metabolic Rate/Score 1,240 Intake Visit Reasons: OV PO Panniculectomy 05/20/24 Plastics Process Hand Required: No Allergies No Known Allergies [No Known Allergies*] Allergy (Verified 08/25/24 13:06) Medication List - Last Reconciled 08/25/24 by GANGA Seymour clotrimazole 1% appl topical docusate sodium (Stool Softener) mg PO DAILY fluticasone propionate 50 mcg/actuation (Allergy Relief (fluticasone)) 1 spray intranasal DAILY PRN levothyroxine mcg PO DAILY omeprazole 40 mg PO DAILY PRN ondansetron 4 mg PO Q12H tirzepatide (weight loss) (Zepbound) 2.5 mg subcut .QFRIDAY vitamin A PO DAILY HPI Comments Details: 59-year-old female returns to the office today in follow-up. She is approximately 3 months post panniculectomy performed on 05/20/2024. Weight today is 131.6 lb with a BMI of 22.6. She also has a history of LSG with hiatal hernia repair on?02/24/[address] Mena. Previously noted 1 mm opening in the 6 o'clock position of the umbilicus has completely healed. She is very happy with the results. Has no complaints. [facility] Medical History Arthritis Panniculitis Overweight (BMI 25.0-29.9) Plantar fasciitis Asthma Depression Anxiety Anemia Hypothyroidism Surgical History S/P panniculectomy Hx of cholecystectomy S/P rotator cuff surgery History of repair of hiatal hernia Hx of hernia repair History of sleeve gastrectomy Hx of colonoscopy History of esophagogastroduodenoscopy (EGD) Hx of total knee replacement Hx of tubal ligation Hx of tonsillectomy Family History Father No problems noted. Mother Hypertension Blood clot in vein Family history of thyroid problem Diabetes mellitus Sleep apnea Son No problems noted. Son No problems noted. Son No problems noted. Daughter No problems noted. Daughter No problems noted. Daughter No problems noted. Brother No problems noted. Brother No problems noted. Sister No problems noted. Social History Are you a primary account executive healthcare to a significant other at home: No Do you presently have visiting nurse or other home services: No Alcohol intake: current Alcohol intake frequency: holidays/special occasions only Patient Tobacco Use Status: Former Tobacco user Tobacco use type: Cigarette Physical Exam Skin Other: Healed transverse and umbilical incisions Assessment & Plan Assessment & Plan (1) S/P panniculectomy: Code(s): Z98.890 - Other specified postprocedural states Category: Surgical Plan: 3 months post panniculectomy with healed incisions. Umbilicus is viable. We will have her return to the office in February for her follow-up sleeve gastrectomy which was performed in February 2019. She will continue to follow her current meal plan, she may exercise freely. Text with any questions or concerns.
[2024-08-25 13:13] VITALS: BP 124/70; PULSE 61; TEMP 36; O2SAT 100; BMI 22.6
== END 2024-08-25 13:22 | disposition home or self-care (01) ==
LOC: HO.HBS 12:44
PROVIDERS: PCP Internal Medicine; Visit Provider Physician Assistant Surgical
DX: L98.7 Excessive and redundant skin and subcutaneous tissue (principal); Z48.817 Encounter for surgical aftercare following surgery on the skin and subcutaneous tissue; Z98.890 Other specified postprocedural states
CPT/HCPCS: 99213

== ENCOUNTER → 2024-08-25 12:43 | Outpatient (BNVA) | payer OTHER, SELFPAY | PROVIDERS: PCP Internal Medicine; Visit Provider Physician Assistant Surgical | DX: Z48.817 Encounter for surgical aftercare following surgery on the skin and subcutaneous tissue (principal); Z98.890 Other specified postprocedural states | CPT/HCPCS: 99212 ==

== ENCOUNTER 2025-02-17 12:39 | Outpatient (AMB) | payer OTHER, SELFPAY ==
--- NOTE | 2025-02-17 12:49 | A.OFFVIS_ITS ---
VS Expanded 02/17/25 12:56 BP 119/62 Blood Pressure Location Rt brachial Blood Pressure Position Sitting Pulse 60 Pulse Source Pulse Oximeter Temp 97.2 F Temperature Source Temporal Artery Scan Pulse Oximetry 60 L Oxygen Delivery Method Room Air Height 5 ft 4 in Weight 143 lb 9.6 oz BMI 24.6 Body Fat % 33.5 Body Fat Mass 48.0 Fat Free Mass 95.4 Visceral Fat Rating 7.0 Body Water % 47.0 Body Water Mass 67.4 Muscle Mass/Score 90.6 Basal Metabolic Rate/Score 1,295 Intake Visit Reasons: OV PO Panniculectomy 05/20/24 Allergies No Known Allergies (No Known Allergies*) Allergy (Verified 02/17/25 12:56) Medication List - Last Reconciled 02/17/25 by GANGA Lopez docusate sodium (Stool Softener) mg PO DAILY fluticasone propionate 50 mcg/actuation (Allergy Relief (fluticasone)) 1 spray intranasal DAILY PRN levothyroxine mcg PO DAILY omeprazole 40 mg PO DAILY PRN ondansetron 4 mg PO Q12H tirzepatide (weight loss) (Zepbound) 2.5 mg subcut .QFRIDAY vitamin A PO DAILY HPI Comments Details: This?is a?59?yo F who is s/p LSG 02/24/2019. Presents for 6 year post op visit. Weight gain of 12lb since last OV 6mo ago. No complaints of nausea, emesis, abdominal pain or reflux, or constipation. Pt is also 6mo s/p panniculectomy. She notes an odor coming from her belly button. Questioning if it is healed. Has to wash frequently. Present meal plan includes: pt got recently, was not following a plan was on Zepbound- no longer Exercise routine includes: not yet but plans to restart Have you been diagnosed with reflux (GERD)? Score 0-5: 0=no symptoms, 1=noticeable but not bothersome (slight or occasion al), 2=noticeable, bothersome but not daily, 3=bothersome and daily, 4=affects daily activities, 5=incapacitating, unable to do daily activities How bad is the heartburn: 2 Heartburn when lying down: 1 Heartburn when standing up: 1 Heartburn after meals: 4 Does heartburn change your diet: 4 Does heartburn wake you up from sleep: 2 Do you have difficulty swallowin Do you have pain with swallowin If you take medication for reflux, does this affect your daily life: 1 Total score: 21 PFSH Medical History Arthritis Panniculitis Overweight (BMI 25.0-29.9) Plantar fasciitis Asthma Depression Anxiety Anemia Hypothyroidism Surgical History S/P panniculectomy Hx of cholecystectomy S/P rotator cuff surgery History of repair of hiatal hernia Hx of hernia repair History of sleeve gastrectomy Hx of colonoscopy History of esophagogastroduodenoscopy (EGD) Hx of total knee replacement Hx of tubal ligation Hx of tonsillectomy Family History Father No problems noted. Mother Hypertension Blood clot in vein Family history of thyroid problem Diabetes mellitus Sleep apnea Son No problems noted. Son No problems noted. Son No problems noted. Daughter No problems noted. Daughter No problems noted. Daughter No problems noted. Brother No problems noted. Brother No problems noted. Sister No problems noted. Social History Are you a primary certified caregiver to a significant other at home: No Do you presently have visiting nurse or other home services: No Alcohol intake: current Alcohol intake frequency: holidays/special occasions only Patient Tobacco Use Status: Former Tobacco user Tobacco use type: Cigarette Physical Exam Vital Signs: Last Vital Signs Temp 97.2 F 02/17/25 12:56 Pulse 60 02/17/25 12:56 BP 119/62 02/17/25 12:56 Pulse Ox 60 L 02/17/25 12:56 Oxygen Delivery Method Room Air 02/17/25 12:56 BMI result Body Mass Index 24.6 Const General: cooperative, comfortable and no acute distress Orientation/consciousness: patient oriented x3 GI Other: soft, nontender, nondistended panniculectomy incision healed umbilicus incision healed, but can insert cotton tipped swab 2.5cm into very small center of umbilicus; no purulent drainage expressed, but unpleasant odor results when swab is removed. no erythema around umbilicus Neuro General: patient oriented x3 Assessment & Plan Assessment & Plan (1) History of sleeve gastrectomy: Comment: 02/24/2019 Code(s): Z90.3 - Acquired absence of stomach [part of] Category: Surgical (2) S/P panniculectomy: Code(s): Z98.890 - Other specified postprocedural states Category: Surgical Plan Pt will flush umbilicus daily to see if it improves. Unclear whether she has a tract here, or just a small belly button opening. She will flush with 5cc sterile saline daily. We will reassess at next visit. Gave pt [employer] roland info to download, encouraged her to get back on track with meal plan and exercise regimen. RTC 2 weeks to reeval. Orders: Orders Insulin Today Z90.3 - Acquired absence of stomach [part of] Hemoglobin A1c Today Z90.3 - Acquired absence of stomach [part of] Vitamin B12 and Folate Today Z90.3 - Acquired absence of stomach [part of] IRON PROFILE Today Z90.3 - Acquired absence of stomach [part of] TSH reflex Free T4 Today Z90.3 - Acquired absence of stomach [part of] Vitamin D 25-OH Total Today Z90.3 - Acquired absence of stomach [part of] Complete Blood Count Auto Diff Today Z90.3 - Acquired absence of stomach [part of] Comprehensive Met. Panel Today Z90.3 - Acquired absence of stomach [part of] Lipid Panel Today Z90.3 - Acquired absence of stomach [part of] Zinc Today Z90.3 - Acquired absence of stomach [part of] Vitamin A Today Z90.3 - Acquired absence of stomach [part of] Vitamin B1 Today Z90.3 - Acquired absence of stomach [part of] C Reactive Protein Today Z90.3 - Acquired absence of stomach [part of] Ferritin Today Z90.3 - Acquired absence of stomach [part of]
[2025-02-17 12:56] VITALS: BP 119/62; PULSE 60; TEMP 36.2; O2SAT 60; BMI 24.6
== END 2025-02-17 13:40 | disposition home or self-care (01) ==
LOC: HO.HBS 12:39
PROVIDERS: PCP Internal Medicine; Visit Provider Physician Assistant Surgical
DX: Z71.3 Dietary counseling and surveillance (principal); Z98.890 Other specified postprocedural states
CPT/HCPCS: 99214; G2211

== ENCOUNTER → 2025-02-17 12:39 | Outpatient (BNVA) | payer OTHER, SELFPAY | PROVIDERS: PCP Internal Medicine; Visit Provider Physician Assistant Surgical | DX: Z48.817 Encounter for surgical aftercare following surgery on the skin and subcutaneous tissue (principal) | CPT/HCPCS: 99212 ==

== ENCOUNTER 2025-02-26 07:42 | Outpatient (REF) | payer OTHER, SELFPAY ==
--- OUTSIDE RECORDS SUMMARY | 2024-04-30 05:34 | XMS_ITS | Continuity of Care Document ---
Author Organization [facility] Address [address] [place] [address] Phone Care Team Providers Care Veneer Taper Name Role Phone Nahun CONNELLY Adal Unavailable Unavailable Allergies, Adverse Reactions, Alerts Substance Reaction Status Criticality No Known Allergies Active No Inform ation Procedures Procedure Date Office/Outpt E&M Established 25 Mins- CT & [place] Duplex Scan-extrem Veins; Comp- CT & [place] Duplex Scan-extrem Veins; Uni/ CT & [place] J Duplex Scan-extrem Veins; Uni/ CT & [place] J Inj Scleros Solut; Mx Veins 1- CT & [place] J Ultrason Guidan Needle Bx-rad- CT & [place] J Endovenous Laser, 1st Vein- CT & MA Duplex Scan-extrem Veins; Uni/ CT & MA J Inj Scleros Solut; Mx Veins 1- CT & MA J Ultrason Guidan Needle Bx-rad- CT & MA J Duplex Scan-extrem Veins; Uni/ CT & [place] J Endovenous Rf, 1st Vein- CT & [place] 2023 Endovenous Laser, 1st Vein- CT & [place] Offic/outpt E&m Estab 5 Min Trial- Telem edicine CT & [place] Offic Cons New/estab Mod 40 Mi Feb-22-20 24 Duplex Scan-extrem Veins; Comp Advance Directives Directive Yes / No Effective Date File Name No Information Encounters Encounter Description Practice Location Reason(s) For Visit Diagnoses Date Provider Providers Copied on Encounter [facility] MD [facility], [address] [place] [address] Dr Sheets 1000SuSilvano reeves [place], [id number], tel:[phone] [facility] No Information 5 [facility]. [address] [place] [address], [address], [place], [place], [id number], . tel:[phone] Office/Outpt E&M Established 25 Mins- CT & [place] [facility] MD R[facility], [address] [place] [address] Dr Sheets 1000SuSilvano reeves [place], [id number], [place] tel:[phone] CVR - [facility] Disorder of pigmentation , unspecifiedV aricose veins of bilateral lower extremities with painCramp and spasmRestles s legs syndromeLoca lized edema 4 Rolf JUAN RVT, RAYO Broussard. [address] [place] [address], [place], [place], [id number], [place]. tel:[phone] Referring Provider: Odalis Arreola ra, [address] [place] [address], [address]. tel:[phone] [facility] MD [facility], [address] [place] [address] Dr Sheets 1000SuSilvano reeves [place], [id number], [place] tel:[phone] [facility] Encounter for follow-up examination after completed treatment for conditions other than malignant neVaricose veins of bilateral lower extremities with pain 4 Rolf JUAN RVT, RPVI Robert. [address] [place] [address], [facility] [place] [id number], [place]. tel:[phone] Referring Provider: Odalis Arreola ra, [address] [place] [address], [address]. tel:[phone] [facility] MD [facility], [address] [place] [address] Dr Sheets 1000SuSilvano reeves [place], [id number], [place] tel:[phone] CVR - [facility] Encounter for follow-up examination after completed treatment for conditions other than malignant ne 4 Rolf JUAN RVT, RAYO Broussard. [address] [place] [address], [facility] [place], [id number], [place]. tel:[phone] Referring Provider: Odalis Arreola ra, [address] [place] [address], [address]. tel:[phone] [facility], [address] [place] [address] Dr Sheets 1000Suite 1000[place], [id number], [place] tel:[phone] [facility] [place] [facility] [place] Encounter for follow-up examination after completed treatment for conditions other than malignant nePain in right leg 4 Rolf JUAN RVT, RAYO Broussard. [address] [place] [address], [facility] [place], [id number], [place]. tel:[phone] Referring Provider: Odalis Arreola ra, [address] [place] [address], [address]. tel:[phone] [facility], [address] [place] [address] Dr Sheets 1000Suite Sil[place] Machado [place], [id number], [place] tel:[phone] CVR - [facility] Varicose veins of right lower extremity with other complication s 4 Rolf JUAN RVT, RAYO Broussard. [address] [place] [address], [facility] [place], [id number], [place]. tel:[phone] Referring Provider: Odalis Arreola ra, [address] [place] [address], [address]. tel:[phone] [facility], [address] [place] [address] Dr Sheets 1000Suite 1000[place], [id number], [place] tel:[phone] [facility] Chronic venous hypertension (idiopathic) with inflammation of right lower extremity 4 Rolf JUAN RVT, RAYO Broussard. [address] [place] [address], [facility], [place], [id number], [place]. tel:[phone] Referring Provider: Odalis Arreola ra, [address] [place] [address], [address]. tel:[phone] [facility] MD [facility], [address] [place] [address] [address] 1000[place]ano MD, [id number], [place] tel:[phone] [facility] Encounter for follow-up examination after completed treatment for conditions other than malignant neoplasm 4 Melissa Brush. [address] [facility], [address], [place], [place], [id number], [place]. tel:[phone] Referring Provider: Odalis Arreola ra, [address] [place] [address], [address]. tel:[phone] [facility] MD [facility], [address] [place] [address] [facility] 1000Suite 1000[place], [id number], [place] tel:[phone] [facility] Varicose veins of left lower extremity with other complication s 4 Rolf JUAN, BRIDGETTE, RAYO Broussard. [address] [place] [address], [facility] [place], [id number], [place]. tel:[phone] Referring Provider: Odalis Arreola ra, [address] [place] [address], [address]. tel:[phone] [facility] MD R[facility], [address] [place] [address] [facility] 1000Suite 1000[place], [id number], [place] tel:[phone] [facility] Encounter for follow-up examination after completed treatment for conditions other than malignant nePain in left leg 4 Rolf JUAN RVT, RAYO Broussard. [address] [place] [address], [place], [id number], [place]. tel:[phone] Referring Provider: Odalis Arreola ra, [address] [place] [address], [address]. tel:[phone] [facility], [address] [place] [address] Dr Sheets 1000Suite 1000[place], [id number], [place] tel:[phone] [facility] - [place] [facility] [place] Varicose veins of left lower extremity with other complication s 4 Rolf JUAN RVT, RAYO Broussard. [address] [place] [address], [facility] [place], [id number], [place]. tel:[phone] Referring Provider: Odalis Arreola ra, [address] [place] [address], [address]. tel:[phone] [facility], [address] [place] [address] Dr Sheets 1000ite 1000[place] MD, [id number], [place] tel:[phone] [facility] Varicose veins of left lower extremity with other complication s 4 Rolf JUAN RVT, RAYO Broussard. [address] [place] [address], [facility] [place], [id number], [place]. tel:[phone] Referring Provider: Odalis Arreola ra, [address] [place] [address], [address]. tel:[phone] [facility], [address] [place] [address] Dr Sheets 1000[facility] [place] Machado [place], [id number], [place] tel:[phone] [facility] - [place] No Information 4 Rolf JUAN RVT, RAYO Broussard. [address] [place] [address], [facility] [place], [id number], [place]. tel:[phone] Offic/outpt E&m Estab 5 Min Trial- Telemedicine CT & [place] [facility], [address] [place] [address] Dr Sheets 1000Suite 1000[place]ano MD, [id number], [place] tel:[phone] [facility] - [place] Varicose veins of right lower extremity with inflammation Varicose veins of left lower extremity with inflammation Localized edemaCramp and spasmRestles s legs syndromePrur itus, unspecifiedD isorder of pigmentation , unspecified 4 Lynette Almonte. [address] [place], [place] [address], [id number], . tel:[phone] Referring Provider: Odalis Arreola ra, [address] [place] [address], [address]. tel:[phone] Offic Cons New/estab Mod 40 Mt [facility], [address] [place] [address] Dr Sheets 1000[facility] 1000[place], [id number], tel:[phone] [facility] [place] Varicose veins of bilateral lower extremities with other complication sVaricose veins of right lower extremity with inflammation Varicose veins of left lower extremity with inflammation Pain in right lower legRestless legs syndromePrur itus, unspecifiedD isorder of pigmentation , unspecifiedP ain in right legPain in left legPain in left lower legCramp and spasmLocaliz ed edema 4 Rolf JUAN, BRIDGETTE, RAYO Broussard. [address] [place] [address], [facility] [place], [id number], . tel:[phone] Referring Provider: Odalis Arreola ra, [address] [place] [address], [address]. tel:[phone] [facility], [address] [place] [address] [facility] [address] [address], [id number], tel:[phone] [facility] Varicose veins of bilateral lower extremities with pain 4 Rolf JUAN RVT, RAYO Broussard. [address] [place] [address], [facility] [place], [id number], . tel:[phone] Referring Provider: Odalis Arreola ra, [address] [place] [address], [address]. tel:[phone] Family History Family Member Type Diagnosis Age At Onset No Information Payers Payer name Insurance type Covered libertarian ID Authoriza tikike(s) [employer] [facility] CI [id number] Social History Type Description Quantity Date Captured Comments Sex Female Smoking Status No Information Chief Complaint And Reason For Visit No Information Reason For Referral Reason For Referral No Information Plan Of Treatment Date Type Action Status Goal Tobacco cessation counseling completed Goal Diet education completed Goal Tobacco cessation counseling completed Goal Diet education completed Goal Tobacco cessation counseling completed Referral Ordered: Weight management: Referral to physician timeframe: 3 Months (related to Body mass index (BMI) 27.0-27.9, adult) ordered Referral Ordered: Weight management: Referral to physician timeframe: 3 Months (related to Body mass index (BMI) 27.0-27.9, adult) ordered History Of Present Illness Encounter Date Complaint History Of Prese nt Illness No Information Functional Status Date Functional Assessmen t No Information Instructions Date Instruction Additional Infor mation Compression stocking usage as conservative measure Related to Varicose veins of bilateral lower extremities with pain Patient education booklet given Related to Varicose veins of bilateral lower extremities with pain Lifestyle education Related to B liz mass index (BMI) 27.0-27.9, adult Giving Encouragement to exercise Related to Body mass index (BMI) 27.0-27.9, adult Diet education Related to Body mass index (BMI) 27.0-27.9, adult Compression stocking usage as conservative measure Related to Varicose veins of right lower extremity with inflammation Patient education booklet given Related to Varicose veins of right lower extremity with inflammation Diet education Related to Body mass index (BMI) 27.0-27.9, adult Pre and post instruc tions reviewed and provided Related to Varicose veins of bilateral lower extremities with other complications Patient education booklet given Related to Varicose veins of bilateral lower extremities with other complications Lifestyle education Related to B liz mass index (BMI) 27.0-27.9, adult Giving Encouragement to exercise Related to Body mass index (BMI) 27.0-27.9, adult Assessments Type Assessment Date No Information Patient Care Teams Name Effective Dates (start - stop) Status Members No Information
[2025-02-26 08:25] LABS: MANUAL DIFF FLAG NO
[2025-02-26 09:14] LABS: Hematocrit 39.7 % (37.0-47.0); Hemoglobin 12.6 g/dl (12.0-16.0); Imm Gran Abs Auto 0.00 X10*3/uL (0.00-0.03); Imm Gran Pct Auto 0.0 % (0.0-0.4); Lymphocytes Absolute Auto 1.1 X10*3/uL (1.2-4.9); Mean Corpuscular HGB Conc 31.7 g/dl (31.0-35.0); Mean Corpuscular Hemoglobin 29.6 pg (27.0-33.0); Mean Corpuscular Volume 93.4 fL (80.0-98.0); NRBC Abs Auto 0.000 X10*3/uL (0.0-0.012); NRBC Pct Auto 0.0 /100WBC (0.0-0.2); Platelet Count 267 X10*3/uL (160-400); Red Blood Count 4.25 X10*6/uL (4.20-5.50); White Blood Count 3.2 X10*3/uL (4.8-10.8)
[2025-02-26 09:58] LABS: Alanine Aminotransferase 27 U/L (0-31); Albumin Level 4.0 g/dL (3.5-5.0); Alkaline Phosphatase 70 U/L (39-117); Anion Gap 11 (12-20); Aspartate Amino Transferase 33 U/L (5-31); Blood Urea Nitrogen 17 mg/dL (9-16); Calcium 9.2 mg/dL (8.4-10.2); Carbon Dioxide 29 mmol/L (22-29); Chloride 109 mmol/L (96-108); Cholesterol 180 mg/dL (<200); Estimated Glomerular Filt Rate > 60; HDL Cholesterol 75 mg/dL (>40); Iron 77 mcg/dL (30-160); Percent Iron Saturation 28 % (15-50); Potassium 4.9 mmol/L (3.3-5.1); Sodium 144 mmol/L (135-145); Total Iron Binding Capacity 276 mcg/dL (228-428); Total Protein 6.9 g/dL (6.5-8.0); Triglycerides 46 mg/dL (<150); Unsaturated Iron Binding 199 ug/dL
[2025-02-26 10:24] LABS: Ferritin 75 ng/mL (10-250)
[2025-02-26 10:35] LABS: Folate 7.0 ng/mL (> or = 4.0); Vitamin B12 332 pg/mL (200-900)
[2025-02-26 11:02] LABS: Free T4 (Free Thyroxine) 0.92 ng/dL (0.71-1.85)
== END 2025-02-26 07:43 | disposition home or self-care (01) ==
LOC: HO.LAB 07:42
PROVIDERS: PCP Internal Medicine; Visit Provider Physician Assistant Surgical
DX: Z90.3 Acquired absence of stomach [part of] (principal)
CPT/HCPCS: 36415; 80053; 80061; 82306; 82607; 82728; 82746; 83036; 83525; 83540; 84425; 84439; 84443; 84590; 84630; 85025; 86140

== ENCOUNTER 2025-02-28 08:29 | Outpatient (AMB) | payer OTHER, SELFPAY ==
--- NOTE | 2025-02-28 08:49 | MHC.OFFVISWM ---
VS Expanded 02/28/25 08:58 BP 107/60 Blood Pressure Location Rt brachial Blood Pressure Position Sitting Pulse 61 Pulse Source Pulse Oximeter Temp 97.5 F Temperature Source Temporal Artery Scan Pulse Oximetry 99 Oxygen Delivery Method Room Air Height 5 ft 4 in Weight 142 lb 12.8 oz BMI 24.5 Body Fat % 35.7 Body Fat Mass 51.0 Fat Free Mass 91.8 Visceral Fat Rating 8.0 Body Water % 45.4 Body Water Mass 64.8 Muscle Mass/Score 87.0 Basal Metabolic Rate/Score 1,257 Intake Visit Reasons: OV PO Panniculectomy 05/20/24 okay per Ak Allergies No Known Allergies (No Known Allergies*) Allergy (Verified 02/28/25 09:00) Medication List - Last Reconciled 02/28/25 by GANGA Lopez docusate sodium (Stool Softener) mg PO DAILY fluticasone propionate 50 mcg/actuation (Allergy Relief (fluticasone)) 1 spray intranasal DAILY PRN levothyroxine mcg PO DAILY omeprazole 40 mg PO DAILY PRN ondansetron 4 mg PO Q12H tirzepatide (weight loss) (Zepbound) 2.5 mg subcut .QFRIDAY vitamin A PO DAILY HPI Comments Details: This is a 59 yo F who is s/p LSG 02/24/2019. Here for follow up of belly button issue. Panniculectomy 05/2024 pt got recently, was not following a plan I gave her Pownce roland at last visit and she did download but reports she was busy and did not get to follow any plan was on Zepbound- no longer Exercise routine includes: not yet but plans to restart PFSH Medical History Arthritis Panniculitis Overweight (BMI 25.0-29.9) Plantar fasciitis Asthma Depression Anxiety Anemia Hypothyroidism Surgical History S/P panniculectomy Hx of cholecystectomy S/P rotator cuff surgery History of repair of hiatal hernia Hx of hernia repair History of sleeve gastrectomy Hx of colonoscopy History of esophagogastroduodenoscopy (EGD) Hx of total knee replacement Hx of tubal ligation Hx of tonsillectomy Family History Father No problems noted. Mother Hypertension Blood clot in vein Family history of thyroid problem Diabetes mellitus Sleep apnea Son No problems noted. Son No problems noted. Son No problems noted. Daughter No problems noted. Daughter No problems noted. Daughter No problems noted. Brother No problems noted. Brother No problems noted. Sister No problems noted. Social History Are you a primary day care home provider to a significant other at home: No Do you presently have visiting nurse or other home services: No Alcohol intake: current Alcohol intake frequency: holidays/special occasions only Patient Tobacco Use Status: Former Tobacco user Tobacco use type: Cigarette Physical Exam Vital Signs: Last Vital Signs Temp 97.5 F 02/28/25 08:58 Pulse 61 02/28/25 08:58 BP 107/60 02/28/25 08:58 Pulse Ox 99 02/28/25 08:58 Oxygen Delivery Method Room Air 02/28/25 08:58 BMI result Body Mass Index 24.5 Const General: cooperative, comfortable and no acute distress Orientation/consciousness: patient oriented x3 GI Other: umbilicus incision healed, but can insert cotton tipped swab 2.5cm into very small center of umbilicus; no purulent drainage expressed, no odor this time. no erythema around umbilicus. there is what appears to be a small band of scar tissue at inferior portion Neuro General: patient oriented x3 Assessment & Plan Assessment & Plan (1) History of sleeve gastrectomy: Comment: 02/24/2019 Code(s): Z90.3 - Acquired absence of stomach [part of] Category: Surgical (2) S/P panniculectomy: Code(s): Z98.890 - Other specified postprocedural states Category: Surgical Plan I do not believe pt has an open wound at base of belly button. Rather, her belly button seems to have healed in a way that resulted in a deep base of umbilicus and a small opening. No open areas at incision/scar. Flushes have helped to decrease odor. Photo taken today and will discuss with Dr Clement whether any interventions would be beneficial for this.
[2025-02-28 08:58] VITALS: BP 107/60; PULSE 61; TEMP 36.4; O2SAT 99; BMI 24.5
== END 2025-02-28 09:44 | disposition home or self-care (01) ==
LOC: HO.HBS 08:29
PROVIDERS: PCP Internal Medicine; Visit Provider Physician Assistant Surgical
DX: Z71.3 Dietary counseling and surveillance (principal); Z90.3 Acquired absence of stomach [part of]; Z98.890 Other specified postprocedural states; Z98.84 Bariatric surgery status
CPT/HCPCS: 99214; G2211

== ENCOUNTER → 2025-02-28 08:29 | Outpatient (BNVA) | payer OTHER, SELFPAY | PROVIDERS: PCP Internal Medicine; Visit Provider Physician Assistant Surgical | DX: Z98.890 Other specified postprocedural states (principal); Z90.3 Acquired absence of stomach [part of] | CPT/HCPCS: 99212 ==